=== PATIENT | male | born 1955 | race Caucasian/White ===

== ENCOUNTER → 2017-11-14 09:17 | Outpatient (CLI) | payer MEDICARE, OTHER, SELFPAY ==
[2017-11-14 12:04] LABS: Alanine Aminotransferase 29 U/L (12-78); Albumin Level 3.9 gm/dL (3.4-5.0); Alkaline Phosphatase 131 U/L (46-116); Aspartate Amino Transferase 18 U/L (15-37); Bilirubin,Direct 0.1 mg/dL (0.0-0.2); Bilirubin,Total 0.5 mg/dL (0.2-1.0); Chol/HDL Ratio 3.7 (1-3.5); Cholesterol 140 mg/dL (140-200); HDL Cholesterol 38 mg/dL (27-67); LDL Cholesterol 77 mg/dL (0-130); Triglycerides 125 mg/dL (30-200); VLDL Cholesterol 25 mg/dL (0-40)
== END ==
PROVIDERS: PCP Family Medicine; Visit Provider Internal Medicine Cardiovascular Disease
DX: I25.118 Atherosclerotic heart disease of native coronary artery with other forms of angina pectoris (principal); E78.4 Other hyperlipidemia; I10 Essential (primary) hypertension
CPT/HCPCS: 36415; 80061; 80076

== ENCOUNTER → 2018-08-20 07:14 | Outpatient (CLI) | payer MEDICARE, OTHER, SELFPAY ==
--- NOTE | 2018-08-20 07:15 | NM_ITS ---
History and Indications: History of MS, hypertension, family history, fatigue Procedure: Patient received a 0.4 mg of intravenous Lexiscan, resting heart rate was 60 bpm resting blood pressure 168/96, with intravenous Lexiscan maximum heart rate achieved was 121bpm which is less than 85% of the maximum predicted heart rate and a blood pressure was 155/76. With Lexiscan patient complained of shortness of breath and dizziness. Electrocardiogram: Resting echocardiogram showed sinus rhythm left bundle-branch block, with Lexiscan there is less than 1.[address] segment depression noted from the baseline EKG. The EKG portion of the Lexiscan Myoview is nondiagnostic. Cardiac stress and resting SPECT images: Cardiac stress and resting SPECT images were obtained using technetium 99 Myoview 31.1 mCi stress and 10.7 mCi at rest. Gated SPECT further analysis of segmental wall motion and calculation of the ejection fraction also done. Cardiac stress and resting SPECT images show a fixed defect involving the inferior, posterobasal and anteroseptal wall with area of prior myocardial scarring, no reversible ischemia seen, computer derived ejection fraction is 54% with marked inferior, posterobasal and anteroseptal wall hypokinesis. Right ventricle is normal size and contractility. Conclusion: 1. The EKG portion of the Lexiscan Myoview is nondiagnostic. 2. Scintigraphic evidence of myocardial scarring involving the inferior, posterobasal and anteroseptal wall, computer derived ejection fraction is 54% with segmental wall motion abnormality described above. Right ventricle is normal size and contractility. 3. Abnormal Lexiscan Myoview study.
--- NOTE | 2018-08-20 10:46 | HMH.ITSHM ---
Current Home Medications as stated by this patient Darian Mondragon or commercial sales representative. []famotidine metoprolol spironolactone asa atorvastatin
== END ==
PROVIDERS: PCP Family Medicine; Visit Provider Internal Medicine
DX: I25.5 Ischemic cardiomyopathy (principal); I25.118 Atherosclerotic heart disease of native coronary artery with other forms of angina pectoris; Z95.810 Presence of automatic (implantable) cardiac defibrillator
CPT/HCPCS: 78452; 93017; A9502; J2785

== ENCOUNTER → 2019-04-26 12:44 | Outpatient (CLI) | payer MEDICARE, OTHER, SELFPAY ==
--- NOTE | 2019-04-26 12:47 | CI_ITS ---
Cerebrovascular Exam IMPRESSIONS 1. The bilateral vertebral arteries are patent with normal antegrade flow. 2. Study suggests less than 20% stenosis involving the right internal carotid artery and the left internal carotid artery. History: Coronary artery disease. Risk factors: Hypertension. Hyperlipidemia. Carotid duplex study. Complete study and Doppler flow study including spectral analysis, color and arthur scale imaging. Location: Vascular laboratory. Patient status: Outpatient. Tables: Arterial flow: + +--------+--------+ Location V sys V ed + +--------+--------+ Right CCA - proximal 119cm/s 26.7cm/s + +--------+--------+ Right CCA - distal 69.8cm/s 16.3cm/s + +--------+--------+ Right ECA 136cm/s -------- + +--------+--------+ Right ICA - proximal 70.7cm/s 20.4cm/s + +--------+--------+ Right ICA - mid 78.7cm/s 22.3cm/s + +--------+--------+ Right ICA - distal 80.1cm/s 33cm/s + +--------+--------+ Right vertebral 49.5cm/s -------- + +--------+--------+ Left CCA - proximal 98.2cm/s 25.9cm/s + +--------+--------+ Left CCA - distal 62.3cm/s 16.5cm/s + +--------+--------+ Left ECA 95.9cm/s -------- + +--------+--------+ Left ICA - proximal 75.5cm/s 27.6cm/s + +--------+--------+ Left ICA - mid 80.4cm/s 29.3cm/s + +--------+--------+ Left ICA - distal 68.4cm/s 26.1cm/s + +--------+--------+ Left vertebral 62.2cm/s -------- + +--------+--------+ Velocity ratios: + + + + + + Right, V sys Right, V ed Left, V sys Left, V ed + + + + + + Max ICA/dist CCA 1.15 2.02 1.29 1.78 + + + + + + (Report amended ) Electronically signed by: Blu Walsh [id number]
--- NOTE | 2019-04-26 12:47 | CA_ITS ---
PROCEDURE: 2-D M-mode and color Doppler study INDICATIONS FOR THE TEST: Chest pain COPD Heart Murmur Tobacco Smoking Palpitations Fatigue Syncope Edema Hypertension+Diabetes Mellitus Rheumatic Fever SOB+DOUGLAS Obesity+Hyperlipidemia+ Family History HD Additional History CM, hx of cardiac arrest, CAD, cardiac stents, hx of LBBB, hx of STEMI PATIENT INFORMATION HEIGHT: 74 WEIGHT: 273 GENDER: Male B/P: 142/76 2-D/M-MODE INTERPRETATION: 2-D MEASUREMENTS OBSERVED VALUES IN CMS Right Ventricular Dimension (RVDd) 2.7 Interventricular Septum (Thickness)(IVsd) 0.9 Left Ventricular Internal Dimensions(LVIDd) 5.5 Left Ventricular Posterior Wall (Thickness)(LVPWd) 0.9 Aortic Root 3.1 Aortic Cusp Separation 2.0 Left Atrial Dimensions (LAD) 4.0 2D 1. Left atrium is mildly enlarged, left ventricle is normal size, mild concentric left ventricular hypertrophy, visually estimated ejection fraction 45%, there is abnormal septal motion. 2. The right atrium and right ventricle are normal size and contractility, there is an AICD or a pacemaker lead seen right ventricle. 3. The aortic valve is minimally thickened and fibrosed. 4. The mitral and tricuspid valvular grossly normal. 5. The pulmonic valve is poorly visualized. 6. No significant pericardial effusion noted. DOPPLER INTERROGATION: Doppler interrogation of the aortic, mitral and tricuspid valvular presence of mild aortic, mild mitral and tricuspid regurgitation, tricuspid regurgitation jet velocity is inadequate for calculation of the right ventricular systolic pressure, grade 1 diastolic dysfunction seen without tissue Doppler evidence of raised left atrial pressure. CONCLUSION: 1. Mildly enlarged left atrium, normal left ventricular size, mild concentric left ventricular hypertrophy, visually estimated ejection fraction 45%, there is abnormal septal motion. Grade 1 diastolic dysfunction seen without tissue Doppler evidence of raised left atrial pressure. 2. Mild aortic, mild mitral and tricuspid regurgitation 3. No significant pericardial effusion noted.
== END ==
PROVIDERS: PCP Family Medicine; Visit Provider Nurse Practitioner Family
DX: I25.5 Ischemic cardiomyopathy (principal); I51.9 Heart disease, unspecified; R42 Dizziness and giddiness; Z86.74 Personal history of sudden cardiac arrest; Z95.810 Presence of automatic (implantable) cardiac defibrillator; R09.89 Other specified symptoms and signs involving the circulatory and respiratory systems
CPT/HCPCS: 93306; 93880

== ENCOUNTER → 2019-07-23 12:08 | Outpatient (CLI) | payer MEDICARE, OTHER, SELFPAY ==
[2019-07-23 12:37] LABS: Basophils % 0.5 % (0.1-2.0); Eosinophils # 0.2 K/mm3 (0.0-0.4); Eosinophils % 3.9 % (0.1-12.0); Hematocrit 42.4 % (42.0-52.0); Hemoglobin 13.5 g/dL (14.1-18.0); Lymphocytes # 1.4 K/mm3 (0.7-4.5); Lymphocytes % 25.3 % (10-50); Mean Corpuscular HGB Conc 31.8 g/dL (31.8-35.4); Mean Corpuscular Hemoglobin 29.7 pg (27.0-31.2); Mean Corpuscular Volume 93.5 fl (80-94); Mean Platelet Volume 7.6 fl (7.4-10.4); Monocytes # 0.3 K/mm3 (0.1-1.0); Monocytes % 5.4 % (1.7-9.3); Neutrophils # 3.6 K/mm3 (1.8-7.8); Neutrophils % 64.9 % (37.0-80.0); Platelet Count 369 K/mm3 (142-424); Red Blood Count 4.54 M/mm3 (4.60-6.20); Red Cell Distribution Width 13.3 % (11.5-17.5); White Blood Count 5.5 K/mm3 (4.8-10.8)
[2019-07-23 14:07] LABS: Anion Gap 16.1 mEq/L (5-15); Blood Urea Nitrogen 17 mg/dL (7-18); Calcium 9.3 mg/dL (8.5-10.1); Carbon Dioxide 26 mmol/L (21.0-32.0); Chloride 104 mmol/L (98-107); Creatinine,Serum 1.09 mg/dL (0.70-1.30); Estimated Glomerular Filt Rate 68 ml/min (>60); Free Thyroxine Index 2.8 ug/dL (5.93-13.13); GFR (African American) 82 ML/MIN (>60); Glucose 105 mg/dL (74-106); Potassium 5.1 mmoL/L (3.5-5.1); Sodium 141 mmol/L (136-145); T4 (Thyroxine) 8.8 ug/dl (4.7-13.3); Thyroid Stimulating Hormone 1.46 uIU/ml (0.358-3.740); Triiodothryronine (T3) Uptake 32 % (31-39)
== END ==
PROVIDERS: Visit Provider Internal Medicine Cardiovascular Disease
DX: E78.2 Mixed hyperlipidemia (principal); I10 Essential (primary) hypertension; I25.10 Atherosclerotic heart disease of native coronary artery without angina pectoris; I25.5 Ischemic cardiomyopathy; I48.91 Unspecified atrial fibrillation; I51.9 Heart disease, unspecified; R42 Dizziness and giddiness; Z86.74 Personal history of sudden cardiac arrest; Z95.810 Presence of automatic (implantable) cardiac defibrillator
CPT/HCPCS: 36415; 80048; 84436; 84443; 84479; 85025

== ENCOUNTER 2020-02-14 11:18 | Emergency (ER) | payer MEDICARE, OTHER, SELFPAY ==
[2020-02-14 11:21] VITALS: BP 163/94; PULSE 86; RESP 18; TEMP 36.9; O2SAT 95; BMI 24.3
--- NOTE | 2020-02-14 11:29 | CT_ITS ---
PROCEDURE: CT LUMBAR SPINE WO CON CLINICAL HISTORY: back pain, nocturnal Low back pain COMPARISON: [facility] CT LUMBAR SPINE W/O CONTRAST from 11/23/2012 TECHNIQUE: Axial images obtained with sagittal and coronal reformats. All CT scans at the facility use one or more dose reduction, viz: automated exposure control, ma/kV adjustment per patient size (including targeted exams where dose is matched to indication, i.e. head), or iterative reconstruction technique. FINDINGS: There is straightening of the lumbar lordosis which may be due to patient positioning or muscle spasm. T11-T12: Degenerate disc disease with facet ligamentum hypertrophy and mild right foraminal and lateral recess narrowing. T12-L1: Degenerate disc disease. Anterior osteophytes are present at this level. L1-L2: Mild degenerative disc disease. There is bulging disc with disc protrusion in both right and left foraminal region right greater than left. L2-L3: Unremarkable. L3-L4: Degenerate disc disease with bulging disc along with facet and ligamentum hypertrophy with moderate to severe bilateral lateral recess narrowing with bilateral foraminal narrowing and canal stenosis at 10 mm. L4-5: Mild degenerative disc disease with bulging disc with facet ligamentum hypertrophy with moderate bilateral foraminal and lateral recess narrowing. L5-S1: Degenerate disc disease with prominent endplate hypertrophic changes well as facet and ligamentum hypertrophy with severe right-sided foraminal narrowing and moderate to severe left-sided foraminal narrowing along with right lateral recess narrowing. Right paracentral and foraminal disc osteophyte complex is present. IMPRESSION: 1. Multilevel lumbar spondylosis as detailed above. Please see above for detailed description at each level. These findings are most severe at L3-L4 and L5-S1. 2. No acute fracture or dislocation. Dictated by: David Rocha MD 02/14/2020 12:31 Electronically signed by David Rocha MD in [place] 02/14/2020 12:31
--- NOTE | 2020-02-14 11:29 | HMH.EDGENADL ---
ED Disposition Clinical Impression: Lumbar disc disease Low back pain Qualifiers: Chronicity: chronic Back pain laterality: midline Sciatica presence: without sciatica Qualified Code(s): M54.5 - Low back pain Disposition: Home, Self-Care Condition on Discharge: Fair Instructions: DI for Low Back Pain Additional Instructions: You have been evaluated for low back pain, likely due to degenerative joint disease. Please take Tylenol and ibuprofen for pain. Use Lidoderm patches if they help. Follow up with your primary care doctor this week. Return to the emergency department if you have new or worsening symptoms, fevers, numbness, difficulty walking. Referrals: Provider,Referral, [Referring] - Time of Disposition: 14:18 - Critical Care Critical Care Time: No Attestation: On , the high probability of a clinically significant, sudden or life threatening deterioration of the following system(s) required my full and direct attention, intervention and personal management. The time I documented below is in addition to time spent performing reported procedures but includes the following listed in this critical care notation. Medical Decision Making - Anthony Inquiry Pt receiving controlled substance: No Vital Signs: 02/14/20 11:21 02/14/20 13:41 Temperature 98.4 F 98.0 F Temperature Source Oral Oral Pulse Rate 79 Pulse Rate [Right Radial] 86 Respiratory Rate 18 17 Blood Pressure 145/74 H Blood Pressure [Right Arm] 163/94 H Blood Pressure Mean [Right Arm] 117 Blood Pressure Source [Right Arm] Automatic Cuff Blood Pressure Position [Right Arm] Sitting 02 Sat by Pulse Oximetry 95 Oxygen Delivery Method Room Air Room Air - Lab Data Lab Results 02/14/20 12:05: WBC 6.9, RBC 4.82, Hgb 14.4, Hct 43.0, MCV 89.2, MCH 29.9, MCHC 33.5, RDW 13.5, Plt Count 313, MPV 7.9, Neut % (Auto) 78.5, Lymph % (Auto) 14.6, [place] % (Auto) 4.3, Eos % (Auto) 2.1, Baso % (Auto) 0.4, Neut # (Auto) 5.4, Lymph # (Auto) 1.0, [place] # (Auto) 0.3, Eos # (Auto) 0.2, Baso # (Auto) 0.0 02/14/20 12:10: Urine Color Yellow, Urine Appearance Clear, Urine pH 5.5, Ur Specific [place] >= 1.030, Urine Protein Negative, Urine Glucose (UA) Negative, Urine Ketones Negative, Urine Blood 1+, Urine Nitrate Negative, Urine Bilirubin Negative, Urine Urobilinogen 0.2, Ur Leukocyte Esterase Negative, Urine RBC Occasional, Urine WBC None, Ur Squamous Epith Cells Occasional, Urine Bacteria Trace 02/14/20 12:38: Sodium 139, Potassium 4.5, Chloride 105, Carbon Dioxide 22, Anion Gap 16.5 H, BUN 19, Creatinine 1.00, Estimated Creat Clear 89, Estimated GFR 75, Est GFR ( Amer) 90, Glucose 123 H, Calcium 9.5, Total Bilirubin 0.6, AST 43, ALT 46, Alkaline Phosphatase 86, Total Protein 8.1, Albumin 4.9, Globulin 3.2, Albumin/Globulin Ratio 1.5 Result diagrams: 02/14/20 12:05 02/14/20 12:38 Orders (Tests/Meds): ED MEDICATIONS Discontinued Medications Generic Name Dose Route Start Last Admin Trade Name Jelani PRN Reason Stop Dose Admin Ketorolac Tromethamine 15 mg 02/14/20 11:30 02/14/20 12:52 Toradol 30mg/Ml Vial IV 02/14/20 11:31 15 mg ONCE ONE Administration Lidocaine 1 each 02/14/20 12:49 02/14/20 13:00 Lidoderm 5% Transdermal Patch TP 02/14/20 12:50 1 each ONCE ONE Administration - CT Data CT Scan: L-Spine Time Received: 12:[address] Reviewed: Yes: I have reviewed the patient's CT results, I have viewed the radiologist's interpretation Findings Narrative: CT 1. Multilevel lumbar spondylosis as detailed above. Please see above for detailed description at each level. These findings are most severe at L3-L4 and L5-S1. 2. No acute fracture or dislocation. Medical Decision Narrative: In summary this is a 64-year-old male presenting to the emergency department with midline lumbar back pain. Patient appears uncomfortable on arrival to the emergency department. Vital signs are stable with the exception of hypertension.
[2020-02-14 12:13] LABS: Appearance,Urine CLEAR (Clear); Bilirubin,Urine Negative (Negative); Blood, Urine 1+ (Negative); Color,Urine YELLOW (Yellow); Glucose,Urine (UA) Negative (Negative); Ketones,Urine Negative (Negative); Leukocyte Esterase,Urine Negative (Negative); Microscopic, Urine URINE MICROSCOPIC (MICROSCOPIC); Nitrate,Urine Negative (Negative); PH,Urine 5.5 (5.0-8.5); Protein,Urine Negative (Negative); Specific Gravity, Urine >= 1.030 (1.005-1.030); Urobilinogen,Urine 0.2 EU/dl (0.2)
[2020-02-14 12:18] LABS: Basophils % 0.4 % (0.1-2.0); Eosinophils # 0.2 K/mm3 (0.0-0.4); Eosinophils % 2.1 % (0.1-12.0); Hemoglobin 14.4 g/dL (14.1-18.0); Lymphocytes % 14.6 % (10-50); Mean Corpuscular HGB Conc 33.5 g/dL (31.8-35.4); Mean Corpuscular Hemoglobin 29.9 pg (27.0-31.2); Mean Corpuscular Volume 89.2 fl (80-94); Mean Platelet Volume 7.9 fl (7.4-10.4); Monocytes # 0.3 K/mm3 (0.1-1.0); Monocytes % 4.3 % (1.7-9.3); Neutrophils # 5.4 K/mm3 (1.8-7.8); Neutrophils % 78.5 % (37.0-80.0); Platelet Count 313 K/mm3 (142-424); Red Blood Count 4.82 M/mm3 (4.60-6.20); Red Cell Distribution Width 13.5 % (11.5-17.5); White Blood Count 6.9 K/mm3 (4.8-10.8)
[2020-02-14 12:29] LABS: Bacteria,Urine Trace /lpf; RBC,Urine Occasional #/hpf (0-3); Squamous Epithelial Cell,Urine Occasional #/hpf (0-5)
[2020-02-14 12:51] LABS: Chloride 105 mmol/L (98-107); Potassium 4.5 mmoL/L (3.5-5.1); Sodium 139 mmol/L (136-145)
[2020-02-14 12:53] LABS: Alanine Aminotransferase 46 U/L (12-78); Alkaline Phosphatase 86 U/L (38-126); Aspartate Amino Transferase 43 U/L (17-59); Bilirubin,Total 0.6 mg/dl (0.2-1.3); Blood Urea Nitrogen 19 mg/dl (9-20); Creatinine Clearance Estimated 89 mL/min (50-200); Estimated Glomerular Filt Rate 75 ml/min (>60); GFR (African American) 90 ML/MIN (>60)
[2020-02-14 12:54] LABS: Albumin Level 4.9 g/dl (3.5-5.0); Albumin/Globulin Ratio 1.5 (1.1-1.8); Anion Gap 16.5 mEq/L (5-15); Calcium 9.5 mg/dl (8.4-10.2); Carbon Dioxide 22 mmol/L (22.0-30.0); Globulin 3.2 g/dL (1.3-3.2); Glucose 123 mg/dl (74-100); Total Protein,Serum 8.1 g/dl (6.3-8.2)
[2020-02-14 13:41] VITALS: BP 145/74; PULSE 79; RESP 17; TEMP 36.7; O2SAT 99
== END 2020-02-14 13:41 | disposition home or self-care (01) ==
PROVIDERS: Emergency Provider Emergency Medicine; PCP Family Medicine
DX: M51.36 Other intervertebral disc degeneration, lumbar region (principal); Z87.39 Personal history of other diseases of the musculoskeletal system and connective tissue; Z79.82 Long term (current) use of aspirin; Z79.899 Other long term (current) drug therapy; Z88.8 Allergy status to other drugs, medicaments and biological substances; I25.10 Atherosclerotic heart disease of native coronary artery without angina pectoris; E78.5 Hyperlipidemia, unspecified; I10 Essential (primary) hypertension; Z95.0 Presence of cardiac pacemaker; I25.2 Old myocardial infarction
CPT/HCPCS: 72131; 80053; 81001; 85025; 96374; 99283

== ENCOUNTER → 2020-04-17 12:16 | Outpatient (CLI) | payer MEDICARE, OTHER, SELFPAY ==
[2020-04-17 14:20] LABS: Alanine Aminotransferase 42 U/L (12-78); Albumin Level 4.8 g/dl (3.5-5.0); Alkaline Phosphatase 100 U/L (38-126); Anion Gap 17.4 mEq/L (5-15); Aspartate Amino Transferase 44 U/L (17-59); Bilirubin,Direct 0.1 mg/dl (0.0-0.4); Bilirubin,Indirect 0.3 mg/dL (0.0-0.9); Bilirubin,Total 0.4 mg/dl (0.2-1.3); Bilirubin,Unconjugated 0.3 mg/dL (0.0-1.1); Blood Urea Nitrogen 20 mg/dl (9-20); Calcium 9.9 mg/dl (8.4-10.2); Carbon Dioxide 23 mmol/L (22.0-30.0); Chloride 102 mmol/L (98-107); Chol/HDL Ratio 4.8 (1-3.5); Cholesterol 216 mg/dl (140-200); Estimated Glomerular Filt Rate 75 ml/min (>60); GFR (African American) 90 ML/MIN (>60); Glucose 119 mg/dl (74-100); HDL Cholesterol 45 mg/dl (40-60); Potassium 4.4 mmoL/L (3.5-5.1); Sodium 138 mmol/L (136-145); Total Protein,Serum 7.6 g/dl (6.3-8.2); Triglycerides 183 mg/dl (30-150); VLDL Cholesterol 37 mg/dL (0-40)
[2020-04-17 14:31] LABS: Direct LDL Cholesterol 138.82 mg/dL (100-129)
== END ==
PROVIDERS: Visit Provider Physician Assistant
DX: I10 Essential (primary) hypertension (principal); I42.9 Cardiomyopathy, unspecified; I48.91 Unspecified atrial fibrillation; E78.5 Hyperlipidemia, unspecified; I25.10 Atherosclerotic heart disease of native coronary artery without angina pectoris; Z79.899 Other long term (current) drug therapy; R07.89 Other chest pain
CPT/HCPCS: 36415; 80048; 80061; 80076

== ENCOUNTER → 2021-04-30 10:06 | Outpatient (CLI) | payer MEDICARE, OTHER, SELFPAY ==
--- NOTE | 2021-04-30 10:08 | CA_ITS ---
APPROVED REPORT Flight Security Specialist: Moni Batista RVT Laterality: Bilateral Study Quality: Good Indications: JACQUE Risk Factors Hypertension: Hyperlipidemia Doppler Spectral Velocity Analysis ECA (R) 129.40/19.70 cm/s ECA (L) 112.20/16.50 cm/s dICA (R) 79.70/24.00 cm/s dICA (L) 91.30/33.70 cm/s Archana (R) 65.10/25.70 cm/s Archana (L) 80.80/32.90 cm/s pICA (R) 99.40/20.60 cm/s pICA (L) 86.80/29.90 cm/s dCCA (R) 92.80/22.40 cm/s dCCA (L) 82.30/18.00 cm/s pCCA (R) 93.50/16.50 cm/s pCCA (L) 140.60/27.00 cm/s Vert (R) 45.60/9.60 cm/s Vert (L) 52.70/15.40 cm/s ICA/CCA 1.07 ICA/CCA 1.11 Findings Study suggests less than 20% stenosis of the right and left internal cartoid arteries. Antegrade flow seen bilateral vertebral arteries. Conclusion Study suggests less than 20% stenosis of the right and left internal cartoid arteries. Antegrade flow seen bilateral vertebral arteries. Electronically signed by : David Rocha MD 04/30/2021 17:10:14
--- NOTE | 2021-04-30 10:08 | CA_ITS ---
APPROVED REPORT EXAM: Comprehensive 2D, Doppler, and color-flow Echocardiogram Health Care Legal Assistant: oMni Batista RVT Ht: 6 ft 2 in Wt: 298lbs BSA: 2.58 BP: 142/74 mmHg Indications: EDEMA,CM,HX CARDIAC ARREST,CAD,STENTS,AICD,LBBB,A-FIB,OBESITY,HTN,HLD 2D Dimensions LVOT 2.76 cm (M/F) 1.5-2.5 LA Volume 28.60 mL LA Volume Index 11.12 mL/m2 (M/F) 16-34 M-Mode Dimensions RVDd 3.10 cm (0.9-2.6) LA Diam 4.00 cm (1.9-4.0) LVDd 5.15 cm (3.5-5.7) Ao Diam 3.21 cm (2.0-3.7) LVDs 3.90 cm (3.5-5.7) IVSd 0.89 cm (0.6-1.1) PWd 0.72 cm (0.6-1.1) EF (Teich) 47.90% FS 24.30% EDV (Teich) 126.60 mL TAPSE 2.17 (<1.7) ESV (Teich) 65.90 mL LV Diastology E Decel Time 210.00 (160-240 msec) E/A Ratio 0.8 MED E' 5.80 (< 7 cm/sec) E'/MED E' Ratio 8.41 (>14) LAT E' 8.30 (<10 cm/sec) E/LAT E' Ratio 5.88 (>14) Aortic Valve AI PHT 987.00 ms AO Peak GR. 4.20 mmHg Mitral Valve MV E Max Brady. 49.00 (40-130 cm/s) MV A Velocity 60.00 (40-130 cm/s) E/A Ratio 0.81 MV Decel. Time 210.00 (160-240 ms) MV PHT 62.00 ms Pulmonary Valve PV Peak Velocity 99.00 (50-150 cm/s) Tricuspid Valve TR P. Velocity 223.00 cm/s RAP Estimate 10.00 mmHg RVSP 29.90 mmHg Left Ventricle Left atrium is mildly enlarged, left ventricle is normal size, mild concentric left ventricular hypertrophy, visually estimated ejection fraction 55% with no regional wall motion abnormality, grade 1 diastolic dysfunction seen without tissue Doppler evidence of raise left atrial pressure. Right Ventricle Right atrium and right ventricle are normal size and contractility, there is an AICD lead seen in right atrium and right ventricle. Aortic Valve Aortic valve is minimally thickened and fibrosed, there is aortic stenosis, there is trace aortic insufficiency. Mitral Valve Mitral valve is grossly normal, there is trace mitral regurgitation. Tricuspid Valve Tricuspid grossly normal, there is mild tricuspid regurgitation, calculated right ventricular systolic pressure is within normal range. Pulmonic Valve Pulmonic valve is poorly visualized. Great Vessels Aortic root is normal size. Pericardium No significant pericardial effusion noted. Conclusion 1. Mildly enlarged left atrium, normal left ventricular size, mild concentric left ventricular hypertrophy, visually estimated ejection fraction 55% with no regional wall motion abnormality, grade 1 diastolic dysfunction seen without tissue Doppler evidence of raise left atrial pressure. 2. Thickened and calcified aortic valve without aortic stenosis, there is trace aortic insufficiency. 3. Trace mitral and mild tricuspid regurgitation, calculated right ventricular systolic pressure 29 mmHg. 4. No significant pericardial effusion noted. Electronically signed by : Arsenio Orourke, 04/30/2021 12:51:05
[2021-04-30 12:48] LABS: Chloride 105 mmol/L (98-107)
[2021-04-30 12:49] LABS: Potassium 4.7 mmoL/L (3.5-5.1); Sodium 138 mmol/L (136-145)
[2021-04-30 12:51] LABS: Alanine Aminotransferase 35 U/L (12-78); Alkaline Phosphatase 102 U/L (38-126); Anion Gap 13.7 mEq/L (5-15); Aspartate Amino Transferase 31 U/L (17-59); Bilirubin,Direct 0.4 mg/dl (0.0-0.4); Bilirubin,Indirect 0.4 mg/dL (0.0-0.9); Bilirubin,Total 0.8 mg/dl (0.2-1.3); Bilirubin,Unconjugated 0.4 mg/dL (0.0-1.1); Blood Urea Nitrogen 16 mg/dl (9-20); Carbon Dioxide 24 mmol/L (22.0-30.0); Cholesterol 124 mg/dl (140-200); Estimated Glomerular Filt Rate 75 ml/min (>60); GFR (African American) 90 ML/MIN (>60); Triglycerides 155 mg/dl (30-150); VLDL Cholesterol 31 mg/dL (0-40)
[2021-04-30 12:52] LABS: Albumin Level 4.4 g/dl (3.5-5.0); Calcium 9.2 mg/dl (8.4-10.2); Chol/HDL Ratio 3.8 (1-3.5); Glucose 109 mg/dl (74-100); HDL Cholesterol 33 mg/dl (40-60); Total Protein,Serum 7.1 g/dl (6.3-8.2)
== END ==
PROVIDERS: PCP Family Medicine; Visit Provider Urology
DX: R09.89 Other specified symptoms and signs involving the circulatory and respiratory systems; I25.10 Atherosclerotic heart disease of native coronary artery without angina pectoris; I42.9 Cardiomyopathy, unspecified; I48.91 Unspecified atrial fibrillation; I51.9 Heart disease, unspecified; E78.5 Hyperlipidemia, unspecified; Z86.74 Personal history of sudden cardiac arrest; Z95.810 Presence of automatic (implantable) cardiac defibrillator
CPT/HCPCS: 36415; 80048; 80061; 80076; 93306; 93880

== ENCOUNTER → 2021-08-23 07:59 | Outpatient (CLI) | payer MEDICARE, OTHER, SELFPAY ==
[2021-08-23] VITALS (9 sets, daily range): BP systolic 120–146; BP diastolic 64–94; PULSE 62–94; RESP 17–18; TEMP 36.8–37.1; O2SAT 92–96
== END ==
PROVIDERS: PCP Family Medicine; Visit Provider Family Medicine
DX: U07.1 COVID-19 (principal); Z23 Encounter for immunization
CPT/HCPCS: 96365

== ENCOUNTER → 2021-09-28 16:13 | Outpatient (CLI) | payer MEDICARE, OTHER, SELFPAY ==
--- NOTE | 2021-09-28 | XR_ITS ---
PROCEDURE INFORMATION: Exam: XR Left Knee Exam date and time: 09/28/2021 12:00 AM Age: 66 years old Clinical indication: Pain; Knee; Left TECHNIQUE: Imaging protocol: XR Left knee. Views: 3 views. COMPARISON: No relevant prior studies available. FINDINGS: Bones/joints: No acute fracture. No dislocation. [id number] patellofemoral and medial compartment osteophytosis and joint space loss. Mild lateral patellofemoral compartment degenerative change. Mineralized bodies measuring up to 1.2 cm in size near the anterior tibial tuberosity, probably intra-articular. Nonspecific moderate to large joint effusion. Enthesophyte formation with mild chronic appearing fragmentation of the quadriceps tendon insertion. Small chronic/corticated ossific projecting near the flabella. Soft tissues: Normal. IMPRESSION: 1. Nonspecific moderate to large joint effusion. 2. Tricompartmental osteoarthrosis. Probable mineralized intra-articular bodies anteriorly.
== END ==
PROVIDERS: PCP Family Medicine; Visit Provider Family Medicine
DX: M25.562 Pain in left knee (principal)
CPT/HCPCS: 73562

== ENCOUNTER → 2021-10-25 09:36 | Outpatient (CLI) | payer MEDICARE, OTHER, SELFPAY ==
--- NOTE | 2021-10-25 09:47 | XR_ITS ---
PROCEDURE: XR KNEE LT 4V CLINICAL INDICATION: left knee pain, weightbearing COMPARISON: CR XR KNEE LT 3V from 09/28/2021 FINDINGS: No fracture or dislocation. No lytic or blastic change. There is normal mineralization. There are mild tricompartmental osteoarthritic changes. Osteophytes are present at the intercondylar region of the distal femur and the inter spinous region of the proximal tibia as well at the patella. Along the anterior aspect of the proximal tibia there is a loose body measuring 12 mm. Enthesophyte is present at the superior patella anteriorly. Suspect small suprapatellar effusion. Other findings:None. IMPRESSION: Osteoarthritic changes as described above overall not significantly changed with possible small suprapatellar effusion. Dictated by: David Rocha MD 10/25/2021 12:20 David Rocha MD in [place] 10/25/2021 12:20
== END ==
PROVIDERS: PCP Family Medicine; Visit Provider Orthopaedic Surgery
DX: M25.562 Pain in left knee (principal)
CPT/HCPCS: 73564

== ENCOUNTER → 2022-04-30 06:17 | Outpatient (CLI) | payer MEDICARE, OTHER, SELFPAY ==
--- NOTE | 2022-04-30 06:18 | CA_ITS ---
APPROVED REPORT Exam: Pharmacologic Technologist: Yolanda Hernandez Ht: 6 ft 2 in Wt: 295 lbs BSA: 2.56 m2 HR: 60 bpm BP: 143/76 mmHg Indications: Shortness of Breath (R06.02) Medical History Medications: Lisinopril,,,,, Aspirin,,,,, Metoprolol,,,,, Atorvastatin,,,,, Famotidine,,,,, SpirOnolactone,,,,, RIvaROXABAN,,,,, Furosemide,,,,, Stress Test Details Test: LEXISCAN HR Resting HR: 60 bpm Max Heart Rate (APMHR): 152.505603 bpm Max HR Achieved: 97 bpm Target HR (85% APMHR): 129.865517 bpm % of APMHR: 63.82 Recovery HR: 81 bpm BP Resting BP: 143.0/76.0 mmHg Max BP: 143.0/76.0 mmHg Recovery BP: 133.0/72.0 mmHg ECG Resting ECG: Normal sinus rhythm, rate dependent left bundle branch block, cannot rule out old inferior and anterior LA. Clinical Exercise duration: 04:08 min Highest Stage Achieved: Exercise capacity: 1.0 METs Stress ECG Conclusion Symptoms: Shortness of air, head discomfort. No chest pain. Arrhythmias/Ectopy: Occasional PVC. Apparent rate dependent Left bundle branch block. ST-T Changes: Non-diagnostic changes accociated with Left bundle branch block. Conclusion: Non-diagnostic Lexiscan stress. Myoview images reported separately. Test Summary RECOVERY 03:00 . . 74 . 132/ 76 . . REST 07:56 . . 60 . 143/ 76 . . Stage 1 . . . . . . . Myoview Injected Stage 1 01:00 . . 70 . . . . Stage 2 01:00 . . 87 . . . . Stage 3 01:00 . . 85 . 128/ 68 . . Stage 4 01:00 . . 84 . 134/ 70 . . Stage 4 01:08 . . 79 . 134/ 70 . Stop exercise at 04:08 RECOVERY 01:00 . . 79 . 115/ 67 . . RECOVERY 02:00 . . 83 . 115/ 67 . . RECOVERY 03:00 . . 74 . 132/ 76 . . RECOVERY 04:00 . . 71 . 133/ 72 . . RECOVERY 04:26 . . 73 . 133/ 72 . . Electronically signed by : Arsenio Orourke MD 04/30/2022 18:22:16
--- NOTE | 2022-04-30 06:18 | CA_ITS ---
APPROVED REPORT EXAM: Comprehensive 2D, Doppler, and color-flow Echocardiogram [employer] Locomotive: Bri Mauro, RCS, RVS Ht: 6 ft 2 in Wt: 295lbs BSA: 2.56 BP: 129/65 mmHg Indications: SOA, CAD, AICD, Hx-afib, HTN, Resolved CM 2D Dimensions IVSd 1.30 cm LVEF (Visual) 64.30 % PWd 1.08 cm LA Volume 89.10 mL LVDd 5.24 cm LA Volume Index 34.80 mL/m2 (M/F) 16-34 LVDs 3.39 cm Aortic Root 3.36 cm Left Atrium 3.83 cm LVOT 2.05 cm (M/F) 1.5-2.5 M-Mode Dimensions LA Diam 4.22 cm (1.9-4.0) LVDd 5.28 cm (3.5-5.7) Ao Diam 3.92 cm (2.0-3.7) LVDs 3.59 cm (3.5-5.7) EF (Teich) 59.70% EPSs 0.47 cm FS 32.00% EDV (Teich) 134.20 mL TAPSE 2.12 (<1.7) ESV (Teich) 54.10 mL LV Diastology E Decel Time 300.00 (160-240 msec) E/A Ratio 1.27 MED E' 7.00 (< 7 cm/sec) MED A' 8.90 cm/s E'/MED E' Ratio 8.71 (>14) LAT E' 9.40 (<10 cm/sec) LAT A' 7.60 cm/s E/LAT E' Ratio 6.49 (>14) Aortic Valve LVOT Max 110.00 (70-110 cm/s) LVOT VTI 25.33 cm AoV Peak Brady. 136.00 (50-130 cm/s) AI PHT 651.00 ms AO Peak GR. 7.40 mmHg AO Mean GR. 3.70 (<5 mmHg) AO VTI 29.46 (18-25 cm) NESHA (VTI) 2.84 (2.5-4.5 cm2) Mitral Valve MV A Velocity 48.00 (40-130 cm/s) E/A Ratio 1.27 MV Decel. Time 300.00 (160-240 ms) MV Mean Gr. 1.00 (<2mmHg) MV PHT 87.00 ms Pulmonary Valve PV Peak Velocity 114.00 (50-150 cm/s) NE End VMAX 104.00 cm/s Tricuspid Valve TR P. Velocity 229.00 cm/s RAP Estimate 10.00 mmHg RVSP 31.00 mmHg Left Ventricle Left atrium is mildly enlarged, left ventricle is normal size mild concentric left ventricular hypertrophy, estimated ejection fraction 55% with no regional wall motion abnormality, diastolic parameters are inconclusive. Right Ventricle Right atrium and right ventricle are normal size and contractility, there is an AICD lead seen in right ventricle. Aortic Valve Aortic valve is thickened and calcified without aortic stenosis, there is mild aortic insufficiency. Mitral Valve Mitral valve is minimally thickened, there is mild mitral regurgitation. Tricuspid Valve Tricuspid grossly normal, there is mild tricuspid regurgitation, calculated right ventricular systolic pressure 31 mmHg. Pulmonic Valve Pulmonic valve is poorly visualized. Great Vessels Aortic root is mildly enlarged measuring 3.9 cm Inferior vena cava is poorly visualized. Pericardium No significant pericardial effusion noted. Conclusion 1. Normal left ventricular size preserved left ventricular systolic function, estimated ejection fraction 55% with no regional wall motion abnormality, diastolic parameters are inconclusive. 2. Mild aortic, mitral and tricuspid regurgitation. 3. No significant pericardial effusion. 4. Inferior vena cava is poorly visualized. Electronically signed by : Arsenio Orourke MD 04/30/2022 18:34:19
--- NOTE | 2022-04-30 06:18 | NM_ITS ---
APPROVED REPORT Exam: Nuclear Stress Test Indication: SOB, Fatigue, CAD, HTN, High cholesterol, Family history Patient Location: Outpatient Stress Tech: Yolanda Hernandez NM Tech:Bernadine Argueta, ARRT, RT (R)(N) Ht: 6 ft 2 in Wt: 294 lbs HR: 60 bpm BP: 143/76 mmHg BSA: 2.56 m2 TID: 1.03 BMI: 37.7 History: SOB, Fatigue, CAD, HTN, High cholesterol, Family history Procedure: Patient received a 0.4 mg of intravenous Lexiscan, resting heart rate 60 bpm, resting blood pressure 143/76 mmHg, with Lexiscan maximum heart rate achived was 97 bpm which is Less than 85 % of the maximum predicted heart rate and blood pressure was 143/76 mmHg. With Lexiscan, patient denied any complaint of chest pain. Electrocardiogram Resting electrocardiogram showed sinus rhythm possible inferior infarct age-indeterminate, with Lexiscan there is rate dependent left bundle branch block was seen. The EKG portion of the Lexiscan is nondiagnostic due to baseline abnormal EKG. Cardiac Stress and Resting SPECT Images: Cardiac Stress and Resting SPECT images were obtained using technetium 99m Myoview 30.4 mCi stress and 10.61 mCi at rest. Patient unable to lay on stomach for prone images. Gated SPECT for analysis of segmental wall motion and calculation of the ejection for also done. Cardiac stress and rest SPECT images show fixed defect involving the inferior and inferior apical wall consistent with area of myocardial scarring without significant paz-infarct ischemia, computer derived ejection fraction 56% with moderate inferior and inferior apical wall hypokinesis, right ventricle is normal size and contractility. Conclusion: 1. The EKG portion of the Lexiscan is nondiagnostic. 2. Scintigraphic evidence of myocardial scarring involving the inferior and inferior apical daugherty, computer derived ejection fraction 56% with segmental wall motion abnormality described above, right ventricle is normal size and contractility. 3. Abnormal Lexiscan Myoview study. Electronically signed by : Arsenio Orourke MD 04/30/2022 18:25:02
--- NOTE | 2022-04-30 08:05 | HMH.ITSHM ---
Current Home Medications as stated by this patient Darian Mondragon or auto service representative. []SPIRONOLACTONE RIVAROXABAN METOPROLOL LISINOPRIL FUROSEMIDE ATORVASTATIN ASA FAMOTIDINE
[2022-04-30 10:15] LABS: Basophils # 0.1 K/mm3 (0-0.2); Basophils % 0.6 % (0.1-2.0); Eosinophils # 0.1 K/mm3 (0.0-0.4); Eosinophils % 1.8 % (0.1-12.0); Hematocrit 44.1 % (42.0-52.0); Hemoglobin 13.4 g/dL (14.1-18.0); Lymphocytes # 1.2 K/mm3 (0.7-4.5); Lymphocytes % 15.2 % (10-50); Mean Corpuscular HGB Conc 30.4 g/dL (31.8-35.4); Mean Corpuscular Hemoglobin 30.1 pg (27.0-31.2); Mean Corpuscular Volume 99.1 fl (80-94); Monocytes # 0.4 K/mm3 (0.1-1.0); Monocytes % 5.8 % (1.7-9.3); Neutrophils # 5.8 K/mm3 (1.8-7.8); Neutrophils % 76.6 % (37.0-80.0); Platelet Count 300 K/mm3 (142-424); Red Blood Count 4.45 M/mm3 (4.60-6.20); Red Cell Distribution Width 13.9 % (11.5-17.5); White Blood Count 7.6 K/mm3 (4.8-10.8)
[2022-04-30 10:39] LABS: Alanine Aminotransferase 42 U/L (12-78); Albumin Level 4.2 g/dl (3.5-5.0); Alkaline Phosphatase 96 U/L (38-126); Anion Gap 16.5 mEq/L (5-15); Aspartate Amino Transferase 41 U/L (17-59); Bilirubin,Indirect 0.5 mg/dL (0.0-0.9); Bilirubin,Total 0.5 mg/dl (0.2-1.3); Bilirubin,Unconjugated 0.7 mg/dL (0.0-1.1); Blood Urea Nitrogen 16 mg/dl (9-20); Calcium 9.4 mg/dl (8.4-10.2); Carbon Dioxide 26 mmol/L (22.0-30.0); Chloride 103 mmol/L (98-107); Chol/HDL Ratio 3.3 (1-3.5); Cholesterol 115 mg/dl (140-200); Estimated Glomerular Filt Rate 84 ml/min (>60); GFR (African American) 102 ML/MIN (>60); Glucose 132 mg/dl (74-100); HDL Cholesterol 35 mg/dl (40-60); Magnesium 1.7 mg/dl (1.6-2.3); Potassium 4.5 mmoL/L (3.5-5.1); Sodium 141 mmol/L (136-145); Total Protein,Serum 6.8 g/dl (6.3-8.2); Triglycerides 90 mg/dl (30-150); VLDL Cholesterol 18 mg/dL (0-40)
[2022-04-30 10:50] LABS: Direct LDL Cholesterol 57.21 mg/dL (100-129)
[2022-04-30 10:56] LABS: Free T4 (Free Thyroxine) 0.87 ng/dl (0.78-2.19)
[2022-04-30 11:10] LABS: Thyroid Stimulating Hormone 2.07 uIU/mL (0.465-4.68)
== END ==
PROVIDERS: PCP Family Medicine; Visit Provider Nurse Practitioner Family
DX: E78.5 Hyperlipidemia, unspecified (principal); I10 Essential (primary) hypertension; I25.10 Atherosclerotic heart disease of native coronary artery without angina pectoris; I65.23 Occlusion and stenosis of bilateral carotid arteries; R06.00 Dyspnea, unspecified; R09.89 Other specified symptoms and signs involving the circulatory and respiratory systems; R53.1 Weakness; Z95.810 Presence of automatic (implantable) cardiac defibrillator; E78.2 Mixed hyperlipidemia; I25.5 Ischemic cardiomyopathy; I48.0 Paroxysmal atrial fibrillation
CPT/HCPCS: 36415; 78452; 80048; 80061; 80076; 83735; 84439; 84443; 85025; 93017; 93306; A9502; J2785

== ENCOUNTER → 2023-02-14 14:10 | Outpatient (CLI) | payer MEDICARE, OTHER, SELFPAY ==
--- NOTE | 2023-02-14 14:16 | XR_ITS ---
FINAL REPORT CLINICAL HISTORY: LT SIDED NECK PAIN FINDINGS: CERVICAL SPINE Five views demonstrate no acute fracture. There are mild and moderate degenerative changes with osteophytes. There is chronic calcification posterior to C6. The oblique views are suboptimal. There is moderate neural foraminal narrowing at C6-7 bilaterally. There is no malalignment. IMPRESSION: Degenerative changes with bilateral neural foraminal narrowing at C6-7. Reviewed, Interpreted and Dictated by Josesito Key III, MD Transcribed by Leilani Cabrera Authenticated and [facility]
== END ==
PROVIDERS: PCP Nurse Practitioner Family; Visit Provider Nurse Practitioner Family
DX: M54.2 Cervicalgia (principal)
CPT/HCPCS: 72050

== ENCOUNTER 2023-03-06 08:51 | Day surgery (SDC) | payer MEDICARE, OTHER, SELFPAY ==
[2023-03-06] VITALS (10 sets, daily range): BP systolic 115–178; BP diastolic 64–98; PULSE 42–78; RESP 16–18; O2SAT 91–96; BMI 36.8
--- NOTE | 2023-03-06 08:16 | IR_ITS ---
APPROVED REPORT Patient Location: Outpatient PROCEDURES Left heart catheterization Left ventriculogram Selective coronary angiogram INDICATION Known coronary artery disease, Abnormal Myoview, Accelerated angina pectoris Informed consent was obtained prior to the procedure. COMPLICATIONS NONE Estimated Blood Loss: LESS THAN 10 ML TECHNIQUE One percent lidocaine used to anesthetize the right anterior aspect of the wrist. The right radial artery was accessed via the Seldinger technique. A 6 Kyrgyz sheath was placed in the right radial artery. 150 mg magnesium sulfate, 800 mcg of nitroglycerin, 1mg Lidocaine and 5000 U Heparin were given through the arterial sheath. The papa catheter was also used to perform left heart catheterization, left ventriculogram and selective coronary angiogram. At the end of the procedure the sheath was removed good hemostasis was achieved using Traclet band, patient was transferred to the postop holding area in stable condition. ANGIOGRAPHIC RESULTS The left main artery Normal The left anterior descending artery Has proximal 30% stenosis followed by a proximal to mid vessel stent which is widely patent with minimal in-stent restenosis. There is excellent distal transitioning of the stent. The remaining LAD is widely patent with minimal atheromatous plaque The circumflex artery Is a large nondominant vessel gives rise to a large 3 mm obtuse marginal artery which has a proximal to mid vessel 60% concentric stenosis. The right coronary artery Is a dominant vessel and has mid vessel 40 to 50% stenosis with a distal 40% stenosis. A large posterior descending artery has a stent in the proximal segment which is widely patent with a 50% concentric in-stent restenotic lesion in the midportion followed by an additional 50 to 60% stenosis in the mid to distal posterior descending artery The CELESTE ventriculogram reveals Dilated ventricle with ejection fraction of 45% The left ventricular end-diastolic pressure Severely elevated at 40 mmHg IMPRESSION Coronary artery disease as described above Dilated ventricle with mildly reduced ejection fraction Severely elevated LVEDP PLAN 1. At this point I recommend medical management for the coronary artery disease. I suspect patient's angina pectoris stems from his severely elevated LVEDP 2. Patient drinks lots of Pepsi and it is encouraged that he discontinue all carbonated drinks and stick with water. 3. Lasix 40 daily plus Aldactone 25 mg daily will be prescribed with plans to uptitrate in order to decrease LVEDP which should improve angina 4. Aggressive risk factor modification for coronary disease 5. Following adequate treatment of the diastolic dysfunction and decreasing LVEDP, should patient continue with recalcitrant angina pectoris he can be brought back to the Photocom[facility] [employer] [facility] with consideration revascularize the circumflex artery and possibly the posterior descending artery. At this point it appears patient's symptoms stem from elevated LVEDP which is causing decreased coronary perfusion Electronically signed by : Jj Gann MD 03/06/2023 14:32:15
[2023-03-06 09:34] LABS: Basophils % 0.5 % (0.1-2.0); Eosinophils # 0.2 K/mm3 (0.0-0.4); Eosinophils % 3.6 % (0.1-12.0); Hematocrit 40.3 % (42.0-52.0); Hemoglobin 13.1 g/dL (14.1-18.0); Lymphocytes # 1.6 K/mm3 (0.7-4.5); Lymphocytes % 23.1 % (10-50); Mean Corpuscular HGB Conc 32.6 g/dL (31.8-35.4); Mean Corpuscular Hemoglobin 29.6 pg (27.0-31.2); Mean Corpuscular Volume 90.7 fl (80-94); Monocytes # 0.5 K/mm3 (0.1-1.0); Monocytes % 7.4 % (1.7-9.3); Neutrophils # 4.5 K/mm3 (1.8-7.8); Neutrophils % 65.5 % (37.0-80.0); Platelet Count 299 K/mm3 (142-424); Red Blood Count 4.44 M/mm3 (4.60-6.20); Red Cell Distribution Width 13.7 % (11.5-17.5); White Blood Count 6.9 K/mm3 (4.8-10.8)
[2023-03-06 09:35] LABS: Chloride 99 mmol/L (98-107); Sodium 139 mmol/L (136-145)
[2023-03-06 09:38] LABS: Blood Urea Nitrogen 16 mg/dl (9-20); Carbon Dioxide 24 mmol/L (22.0-30.0); Creatinine Clearance Estimated 128 mL/min (50-200); Estimated Glomerular Filt Rate 84 ml/min (>60); GFR (African American) 101 ML/MIN (>60); Glucose 119 mg/dl (74-100)
== END 2023-03-06 14:14 | disposition home or self-care (01) ==
PROVIDERS: PCP Family Medicine; Visit Provider Internal Medicine
DX: R07.9 Chest pain, unspecified (principal); I65.23 Occlusion and stenosis of bilateral carotid arteries; I48.0 Paroxysmal atrial fibrillation; Z79.01 Long term (current) use of anticoagulants; I25.110 Atherosclerotic heart disease of native coronary artery with unstable angina pectoris; I10 Essential (primary) hypertension; T82.855A Stenosis of coronary artery stent, initial encounter; Z79.899 Other long term (current) drug therapy; Z95.5 Presence of coronary angioplasty implant and graft; Y83.8 Other surgical procedures as the cause of abnormal reaction of the patient, or of later complication, without mention of misadventure at the time of the procedure
CPT/HCPCS: 80048; 85025; 93458; 99152; C1725; C1760; C1769; J1644; Q9967

== ENCOUNTER → 2023-03-18 13:51 | Outpatient (CLI) | payer MEDICARE, OTHER, SELFPAY ==
[2023-03-18 15:53] LABS: Basophils % 0.6 % (0.1-2.0); Eosinophils # 0.1 K/mm3 (0.0-0.4); Hematocrit 41.2 % (42.0-52.0); Hemoglobin 13.7 g/dL (14.1-18.0); Lymphocytes # 1.3 K/mm3 (0.7-4.5); Lymphocytes % 18.7 % (10-50); Mean Corpuscular HGB Conc 33.2 g/dL (31.8-35.4); Mean Corpuscular Hemoglobin 29.8 pg (27.0-31.2); Mean Corpuscular Volume 89.6 fl (80-94); Mean Platelet Volume 8.4 fl (7.4-10.4); Monocytes # 0.5 K/mm3 (0.1-1.0); Monocytes % 6.7 % (1.7-9.3); Neutrophils # 4.8 K/mm3 (1.8-7.8); Platelet Count 362 K/mm3 (142-424); Red Blood Count 4.59 M/mm3 (4.60-6.20); Red Cell Distribution Width 13.7 % (11.5-17.5); White Blood Count 6.7 K/mm3 (4.8-10.8)
[2023-03-18 16:32] LABS: Chloride 96 mmol/L (98-107)
[2023-03-18 16:33] LABS: Potassium 4.7 mmoL/L (3.5-5.1); Sodium 136 mmol/L (136-145)
[2023-03-18 16:35] LABS: Alanine Aminotransferase 35 U/L (12-78); Alkaline Phosphatase 112 U/L (38-126); Anion Gap 18.7 mEq/L (5-15); Aspartate Amino Transferase 37 U/L (17-59); Bilirubin,Indirect 0.9 mg/dL (0.0-0.9); Bilirubin,Total 0.9 mg/dl (0.2-1.3); Bilirubin,Unconjugated 0.9 mg/dL (0.0-1.1); Blood Urea Nitrogen 23 mg/dl (9-20); Carbon Dioxide 26 mmol/L (22.0-30.0); Cholesterol 119 mg/dl (140-200); Estimated Glomerular Filt Rate 66 ml/min (>60); GFR (African American) 80 ML/MIN (>60); Triglycerides 162 mg/dl (30-150); VLDL Cholesterol 32 mg/dL (0-40)
[2023-03-18 16:36] LABS: Albumin Level 4.6 g/dl (3.5-5.0); Calcium 9.6 mg/dl (8.4-10.2); Chol/HDL Ratio 3.2 (1-3.5); Glucose 118 mg/dl (74-100); HDL Cholesterol 37 mg/dl (40-60); Total Protein,Serum 7.3 g/dl (6.3-8.2)
[2023-03-18 16:47] LABS: Direct LDL Cholesterol 57.84 mg/dL (100-129)
[2023-03-18 16:51] LABS: Free T4 (Free Thyroxine) 0.83 ng/dl (0.78-2.19)
[2023-03-18 17:06] LABS: Thyroid Stimulating Hormone 1.47 uIU/mL (0.465-4.68)
== END ==
PROVIDERS: PCP Family Medicine; Visit Provider Nurse Practitioner
DX: E78.2 Mixed hyperlipidemia (principal); I10 Essential (primary) hypertension; I25.118 Atherosclerotic heart disease of native coronary artery with other forms of angina pectoris; I25.5 Ischemic cardiomyopathy; I48.0 Paroxysmal atrial fibrillation; I51.9 Heart disease, unspecified; I65.23 Occlusion and stenosis of bilateral carotid arteries; R06.00 Dyspnea, unspecified; Z95.810 Presence of automatic (implantable) cardiac defibrillator
CPT/HCPCS: 36415; 80048; 80061; 80076; 83735; 84439; 84443; 85025

== ENCOUNTER 2023-06-25 11:39 | Observation (INO) | payer MEDICARE, OTHER, SELFPAY ==
[2023-06-25] VITALS (21 sets, daily range): BP systolic 95–147; BP diastolic 52–93; PULSE 55–78; RESP 16–24; TEMP 36.7–37.1; O2SAT 92–98; BMI 35.9; BMI 36.2
--- NOTE | 2023-06-25 | IR_ITS ---
APPROVED REPORT Patient Location: Emergent Electroencephalograph Technologist: DARNELL Glasgow RT (R) PROCEDURES Left heart catheterization Left ventriculogram Selective coronary angiogram Intravascular ultrasound to the proximal and mid LAD Drug-eluting stent deployment to the proximal [address] elevation myocardial infarction, New onset left bundle branch block in the setting of chest pain/angina pectoris Informed consent was obtained prior to the procedure. COMPLICATIONS None Estimated Blood Loss: Less than 10 ml TECHNIQUE One percent lidocaine used to anesthetize the right anterior aspect of the wrist. The right radial artery was accessed via the Seldinger technique. A 6 Lao sheath was placed in the right radial artery. 2.5 mg of Verapamil, 800 mcg of nitroglycerin, 1mg Lidocaine and 5000 U Heparin were given through the arterial sheath. The papa catheter was also used to perform left heart catheterization, left ventriculogram and selective coronary angiogram. At the end the diagnostic angiogram therapeutic Was administered giving a therapeutic ACT and the guide catheter was placed in left main artery followed by Choice PT extra-support wire. Intravascular ultrasound probe was advanced which demonstrated a severely undersized proximal LAD stent with heavy plaque burden in excess of 70% plaque burden with an MLA of 4 mm???. Because of this a 3.5 x 34 mm [place] frontier stent was deployed at 28 nohelia in the proximal LAD significantly reducing the calcified heavily plaque burden stenosis. Intravascular ultrasound probe was repeated which demonstrated significant improvements with greater luminal diameter. At the end of the procedure the apparatus was removed the sheath was removed and hemostasis was achieved using TR banding patient was transferred to the postop holding in stable condition. ERIN-3 flow was present before and after the procedure ANGIOGRAPHIC RESULTS The left main artery Normal The left anterior descending artery Has proximal hazy calcified stenosis followed by stents in the proximal LAD which appeared to be appropriately sized with good expansion and were patent throughout the mid portion where there was excellent distal transitioning. The remaining LAD was widely patent and wraps the apex The circumflex artery Is nondominant large vessel which has long 40 to 50% stenosis in the mid circumflex artery which extends proximal and distal to the first obtuse marginal artery extending into the second obtuse marginal artery The right coronary artery Is a dominant vessel and has mid vessel 40 to 50% stenosis with a distal 60 to 70% stenosis immediately proximal to a large posterior descending artery. Stents in the posterior descending artery are widely patent in the proximal segment with an eccentric 50% stenosis in the midportion. The CELESTE ventriculogram reveals Reduced at 45% The left ventricular end-diastolic pressure 10 mmHg IMPRESSION New onset left bundle branch block in the setting of chest pain which was felt to be STEMI however proved not to be a STEMI Severe disease throughout the proximal LAD with successful percutaneous revascularization significantly reducing the plaque burden and expanding stents and improving LAD flow Slightly reduced ejection fraction Normal left ventricular end-diastolic pressure PLAN 1. Plavix plus aspirin plus Xarelto x30 days then discontinue aspirin 2. LDL less than 55 to be achieved with high intensity statin 3. Avoidance of tobacco product 4. Risk factor modification 5. Cardiac rehabilitation 6. Official echocardiogram to better evaluate ejection fraction Electronically signed by : Jj Gann MD 06/25/2023 13:18:19
--- NOTE | 2023-06-25 11:38 | ECG_ITS ---
APPROVED REPORT Exam: Resting ECG HR:77 bpm ECG Measurements Heart Rate 77 AXES GA 176 P 19 QRSd 150 QRS -62 QT 418 T 93 QTc 449 Conclusion SINUS RHYTHM WITH OCCASIONAL VENTRICULAR PREMATURE COMPLEXES LEFT AXIS DEVIATION [QRS AXIS < -30] LEFT BUNDLE BRANCH BLOCK [120+ ms QRS DURATION, 80+ ms Q/S IN V1/V2, 85+ ms R IN I/aVL/V5/V6] ABNORMAL ECG UNCONFIRMED REPORT Electronically signed by : Elian Barrera MD 06/26/2023 06:43:38
--- NOTE | 2023-06-25 11:50 | XR_ITS ---
FINAL REPORT CLINICAL HISTORY: chest pain COMPARISON: 11/19/2019 FINDINGS: TWO-VIEW CHEST The heart size is normal. The mediastinum is normal. A pacer is identified. The lungs are clear. There is no pneumothorax. IMPRESSION: No acute cardiopulmonary process. Reviewed, Interpreted and Dictated by Juan Hackett MD Transcribed by Leilani Cabrera Authenticated and . [facility]
[2023-06-25 12:01] LABS: Basophils % 0.3 % (0.1-2.0); Eosinophils # 0.2 K/mm3 (0.0-0.4); Eosinophils % 2.4 % (0.1-12.0); Hematocrit 41.3 % (42.0-52.0); Hemoglobin 13.5 g/dL (14.1-18.0); Lymphocytes # 1.3 K/mm3 (0.7-4.5); Lymphocytes % 15.5 % (10-50); Mean Corpuscular HGB Conc 32.6 g/dL (31.8-35.4); Mean Corpuscular Hemoglobin 29.8 pg (27.0-31.2); Mean Corpuscular Volume 91.1 fl (80-94); Mean Platelet Volume 8.1 fl (7.4-10.4); Monocytes # 0.4 K/mm3 (0.1-1.0); Monocytes % 5.4 % (1.7-9.3); Neutrophils # 6.2 K/mm3 (1.8-7.8); Neutrophils % 76.4 % (37.0-80.0); Platelet Count 342 K/mm3 (142-424); Red Blood Count 4.53 M/mm3 (4.60-6.20); Red Cell Distribution Width 13.3 % (11.5-17.5); White Blood Count 8.1 K/mm3 (4.8-10.8)
--- NOTE | 2023-06-25 12:07 | PC.NURSE ---
pt to xray
[2023-06-25 12:11] LABS: Chloride 103 mmol/L (98-107)
[2023-06-25 12:12] LABS: Potassium 4.4 mmoL/L (3.5-5.1); Sodium 139 mmol/L (136-145)
--- NOTE | 2023-06-25 12:12 | PC.NURSE ---
DR WALKER SPEAKING WITH DR AYALA
[2023-06-25 12:14] LABS: Blood Urea Nitrogen 24 mg/dl (9-20); Creatinine Clearance Estimated 114 mL/min (50-200); Estimated Glomerular Filt Rate 66 ml/min (>60); GFR (African American) 80 ML/MIN (>60)
[2023-06-25 12:15] LABS: Anion Gap 14.4 mEq/L (5-15); Calcium 9.9 mg/dl (8.4-10.2); Carbon Dioxide 26 mmol/L (22.0-30.0); Glucose 126 mg/dl (74-100)
--- NOTE | 2023-06-25 12:19 | HMH.EDGENADL ---
Discharge Plan Disposition Patient Disposition: Admitted Clinical Impressions Clinical Impression: New onset right bundle branch block (RBBB) Discharge ED Provider: Jacob Toscano Adult HPI General Chief complaint: Chest Pain Stated complaint: CP Time Seen by Provider: 06/25/23 12:07 Mode of Arrival: Ambulatory Source of Information: Patient Limitations: No Limitations Description of Symptoms (Recalled from ER Triage Doc. by RN): Pt reports right sided sharp chest pain with movement for about a week . Pt says he does not have the pain at rest and denies SOA, N/V, dizziness, cough, swelling in extremities or diaphoresis. Pt reports being under alot of stress recently with the passing of his mother and a coworker but he has a hx of 3 stents in 2017 and a cardiac arrest in 2018. History of Present Illness HPI narrative: This 67-year-old male presents to the emergency department with sharp chest pain with movement for approximately 1 week. He also describes pressure but no pain at rest. He denies shortness of breath, fever, chills, cough, or leg swelling. He states he has lost multiple people recently and has had a lot of stress. Patient has history of heart attack in the past and has multiple stents. Most recent cardiac cath was in March. Patient states he has a sharp pulling sensation across his chest when he moves the right arm but continues to have pressure at rest in the central chest. He states he is taking all home medications as prescribed. Related Data Home Medications Medication Instructions Recorded Confirmed aspirin 81 mg tablet,delayed 81 mg PO DAILY heart health 11/05/17 06/25/23 release (Adult Low Dose Aspirin) famotidine 20 mg tablet 20 mg PO BID Acid Reflux 11/19/19 06/25/23 atorvastatin 80 mg tablet 80 mg PO HS Cholesterol 03/06/23 06/25/23 rivaroxaban 20 mg tablet (Xarelto) 20 mg PO QPMWITHMEAL Blood 03/06/23 06/25/23 thinner/Afib furosemide 40 mg tablet 40 mg PO DAILY Fluid 06/25/23 06/25/23 lisinopril 10 mg tablet 10 mg PO DAILY High Blood Pressure 06/25/23 06/25/23 spironolactone 25 mg tablet 25 mg PO DAILY Fluid 06/25/23 06/25/23 Previous Rx's Medication Instructions Recorded metoprolol succinate 50 mg 50 mg PO BID High blood pressure 06/18/23 tablet,extended release 24 hr #60 tabs Allergies Allergy/AdvReac Type Severity Reaction Status Date / Time esomeprazole [From NEXIUM] Allergy Mild Verified 04/21/23 10:[address] [facility] Disclaimer: The information contained in this section may have been updated after the patient was seen, as this information can be updated by other users. Medical History Atrial fibrillation Cardiomyopathy Coronary artery disease HLD (hyperlipidemia) HTN (hypertension) Myocardial infarction Surgical History History of back surgery Family History Coronary artery disease Social History Smoking Status: Never smoker alcohol intake: never substance use type: denies use current occupational status: disabled Travel in the last 8 weeks: Inside the [place] ROS Obtained: Yes All systems reviewed & no additional complaints except as documented Constitutional Constitutional: Denies chills, Denies fever(s), Denies headache(s) and Denies weakness Eyes Eyes: Denies change in vision ENT Ears, Nose, Mouth, and Throat: Denies dizziness, Denies headache(s), Denies nasal congestion and Denies sore throat Cardiovascular Cardiovascular: Reports chest pain, Denies dyspnea and Denies leg edema Respiratory Respiratory: Denies cough and Denies dyspnea Gastrointestinal Gastrointestingal: Denies constipation, diarrhea, nausea or vomiting Genitourinary Male Genitourinary: Denies difficulty urinating Musculoskeletal Musculoskeletal: Denies arthralgias
--- NOTE | 2023-06-25 12:42 | PC.NURSE ---
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
[2023-06-25 12:55] LABS: Troponin I < 0.01 ng/ml (0.00-0.034)
[2023-06-25 13:30] LABS: CATHL Activated Clotting Time > 400 SEC (74-125)
--- NOTE | 2023-06-25 13:49 | CA_ITS ---
APPROVED REPORT EXAM: Comprehensive 2D, Doppler, and color-flow Echocardiogram Excel Developer: Bri Mauro, NICOLASA, RVS Ht: 6 ft 2 in Wt: 280lbs BSA: 2.51 BP: 121/71 mmHg Indications: CP, AFIB, PACER, CAD STNTS, OLD [place], HTN, HLD, OBESITY 2D Dimensions IVSd 1.22 cm LVEF (Visual) 55.00 % PWd 1.41 cm LA Volume 56.30 mL LVDd 5.52 cm M: 4.2 - 5.9 LA Volume Index 21.90 mL/m2 (M/F) 16-34 LVDs 4.00 cm M: 2.5 - 4.0 Aortic Root 3.50 cm Left Atrium 2.86 cm LVOT 2.18 cm (M/F) 1.5-2.5 M-Mode Dimensions RVDd 2.16 cm (0.9-2.6) LA Diam 3.11 cm (1.9-4.0) LVDd 5.21 cm (3.5-5.7) Ao Diam 4.02 cm (2.0-3.7) LVDs 3.94 cm (3.5-5.7) IVSd 1.20 cm (0.6-1.1) PWd 1.27 cm (0.6-1.1) EF (Teich) 48.10% EPSs 1.32 cm FS 24.40% EDV (Teich) 130.10 mL TAPSE 1.97 (<1.7) ESV (Teich) 67.50 mL LV Diastology E Decel Time 222.00 (160-240 msec) E/A Ratio 1.04 MED E' 6.00 (< 7 cm/sec) MED A' 8.60 cm/s E'/MED E' Ratio 12.15 (>14) LAT E' 6.60 (<10 cm/sec) LAT A' 9.40 cm/s E/LAT E' Ratio 11.05 (>14) Aortic Valve LVOT Max 90.00 (70-110 cm/s) LVOT VTI 18.69 cm AoV Peak Brady. 111.00 (50-130 cm/s) AI PHT 622.00 ms AO Peak GR. 4.90 mmHg AO Mean GR. 2.40 (<5 mmHg) AO VTI 22.17 (18-25 cm) NESHA (VTI) 3.15 (2.5-4.5 cm2) Mitral Valve MV E Max Brady. 73.00 (40-130 cm/s) MV A Velocity 70.00 (40-130 cm/s) E/A Ratio 1.04 MV Decel. Time 222.00 (160-240 ms) MV Mean Gr. 0.50 (<2mmHg) MV PHT 65.00 ms Pulmonary Valve PV Peak Velocity 74.00 (50-150 cm/s) Tricuspid Valve TR P. Velocity 181.00 cm/s Left Ventricle The left ventricle is normal size. The left ventricular systolic function is normal. The left ventricular ejection fraction is within the normal range. There is increased LV wall thickness. There is normal LV segmental wall motion. Diastolic function is not assessed in this study. LVEF is 50-55%. Right Ventricle The right ventricle is normal size. The right ventricular systolic function is normal. There is a device lead in the RV. Atria The left atrium size is normal. The right atrium size is normal. Aortic Valve The aortic valve opens well. There is no aortic valvular stenosis. Mild aortic regurgitation. Mitral Valve The mitral valve is normal in structure. No evidence of mitral valve stenosis. There is no mitral valve regurgitation noted. Tricuspid Valve The tricuspid valve leaflets are thin and pliable. There is trace tricuspid regurgitation. RVSP is 15 mmHg + RA pressure. Pulmonic Valve The pulmonary valve is grossly normal in structure. Trace pulmonic regurgitation. Great Vessels The aortic root is normal in size. The ascending aorta is normal in size. The IVC is not well visualized. Pericardium There is no pericardial effusion. Other Information Study Quality: Technically Difficult Conclusion This was a technically difficult study due to poor accoustic windows. Normal biventricular systolic function. No significant valvular disease. Electronically signed by : Sally Mondragon, 06/26/2023 18:55:20
--- NOTE | 2023-06-25 13:49 | EXP.HP ---
History of Present Illness *Admission Date: 06/25/23 *Reason for visit:: chest pain *History of present illness: Mr. Lilly is a 67-year-old male with history of CAD. Presented to the ER today with onset of right-sided sharp chest pain. States he has had the pain for about a week. Worse with movement. Not reproducible on exam. Not present all the time at rest. Denies any shortness of breath, nausea, vomiting, cough, diaphoresis. No reported chest trauma. Was seen in March for left heart cath with noncritical findings. Recommended at that time to medically manage his CAD and heart disease. Last cath with stents was in 2017. States he has been under a lot of stress lately with the loss of his mother and a close friend in the beginning of this week. On arrival to the ER, EKG obtained showing new left bundle branch block. Reports compliance with his home regimen. Due to change in EKG and presenting symptoms, cardiology was contacted. Decision made to take patient to the [facility] Integrated for further evaluation out of concern for unstable angina. ER consulted medicine for admission after heart cath. After arriving to the floor, patient is in good spirits. Denies any shortness of breath. Does have some pain with movement on the right side. Cath findings as follows: IMPRESSION New onset left bundle branch block in the setting of chest pain which was felt to be STEMI however proved not to be a STEMI Severe disease throughout the proximal LAD with successful percutaneous revascularization significantly reducing the plaque burden and expanding stents and improving LAD flow Slightly reduced ejection fraction Normal left ventricular end-diastolic pressure [facility] Disclaimer: The information contained in this section may have been updated after the patient was seen, as this information can be updated by other users. Medical History Atrial fibrillation Cardiomyopathy Coronary artery disease HLD (hyperlipidemia) HTN (hypertension) Myocardial infarction Surgical History History of back surgery Family History Coronary artery disease Social History Smoking Status: Never smoker alcohol intake: never substance use type: denies use current occupational status: disabled Travel in the last 8 weeks: Inside the [place] Review of Systems Review of Systems Review of systems (narrative): 14 point review of systems performed, pertinent positives and negatives as per HPI Constitutional Constitutional: Denies headache(s) and Denies weakness ENT Ears, Nose, Mouth, and Throat: Denies dizziness and Denies headache(s) *Musculoskeletal Musculoskeletal: Denies numbness and Denies tingling *Neurologic Neurologic: Denies dizziness, Denies headache(s), Denies numbness, Denies tingling and Denies weakness Meds Home Medications and Allergies Home Medications Medication Instructions Recorded Confirmed Type aspirin 81 mg tablet,delayed 81 mg PO DAILY heart health 11/05/17 06/25/23 History release (Adult Low Dose Aspirin) famotidine 20 mg tablet 20 mg PO BID Acid Reflux 11/19/19 06/25/23 History atorvastatin 80 mg tablet 80 mg PO HS Cholesterol 03/06/23 06/25/23 History rivaroxaban 20 mg tablet (Xarelto) 20 mg PO QPMWITHMEAL Blood 03/06/23 06/25/23 History thinner/Afib metoprolol succinate 50 mg 50 mg PO BID High blood pressure 06/18/23 06/25/23 Rx tablet,extended release 24 hr #60 tabs furosemide 40 mg tablet 40 mg PO DAILY Fluid 06/25/23 06/25/23 History lisinopril 10 mg tablet 10 mg PO DAILY High Blood Pressure 06/25/23 06/25/23 History spironolactone 25 mg tablet 25 mg PO DAILY Fluid 06/25/23 06/25/23 History New Prescriptions to Start Prescriptions: Allergies Allergy/AdvReac Type Severity Reaction Status Date / Messi
--- NOTE | 2023-06-25 14:06 | PC.NURSE ---
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
--- NOTE | 2023-06-25 14:39 | EXP.CARD.CON ---
History of Present Illness History of Present Illness Consult date: 06/25/23 Requesting physician: Jeff Au Consult reason: chest pain Chief complaint: chest pain History of present illness: 67 year old male with past medical hx of CAD, Diastolic dysfunction, afib on xarelto, hx of cardiomyopathy with recovered ef s/p aicd is currently admitted s/p left heart cath. Patient came to ED today with complaint of sharp right sided chest pain x 1 week. Patient was taken to cath laboratory technician from ER for new onset LBBB in the setting of chest pain and received stenting to LAD. See cath report below ANGIOGRAPHIC RESULTS The left main artery Normal The left anterior descending artery Has proximal hazy calcified stenosis followed by stents in the proximal LAD which appeared to be appropriately sized with good expansion and were patent throughout the mid portion where there was excellent distal transitioning. The remaining LAD was widely patent and wraps the apex The circumflex artery Is nondominant large vessel which has long 40 to 50% stenosis in the mid circumflex artery which extends proximal and distal to the first obtuse marginal artery extending into the second obtuse marginal artery The right coronary artery Is a dominant vessel and has mid vessel 40 to 50% stenosis with a distal 60 to 70% stenosis immediately proximal to a large posterior descending artery. Stents in the posterior descending artery are widely patent in the proximal segment with an eccentric 50% stenosis in the midportion. The CELESTE ventriculogram reveals Reduced at 45% The left ventricular end-diastolic pressure 10 mmHg IMPRESSION New onset left bundle branch block in the setting of chest pain which was felt to be STEMI however proved not to be a STEMI Severe disease throughout the proximal LAD with successful percutaneous revascularization significantly reducing the plaque burden and expanding stents and improving LAD flow Slightly reduced ejection fraction Normal left ventricular end-diastolic pressure [facility] Disclaimer: The information contained in this section may have been updated after the patient was seen, as this information can be updated by other users. Medical History Atrial fibrillation Cardiomyopathy Coronary artery disease HLD (hyperlipidemia) HTN (hypertension) Myocardial infarction Surgical History History of back surgery Family History Other Coronary artery disease Social History (Updated 06/25/23 @ 14:21 by Keysha Renner RN) Smoking Status: Never smoker alcohol intake: never substance use type: denies use current occupational status: disabled Travel in the last 8 weeks: Inside the [place] Review of Systems Constitutional Constitutional: Denies headache(s) and Denies weakness ENT Ears, Nose, Mouth, and Throat: Denies dizziness and Denies headache(s) *Cardiovascular Cardiovascular: Reports chest pain Comments: Exacerbated with right arm movement *Musculoskeletal Musculoskeletal: Denies numbness and Denies tingling *Neurologic Neurologic: Denies dizziness, Denies headache(s), Denies numbness, Denies tingling and Denies weakness Exam Data for Last 24 hours Vital signs and Labs for Last 24 Hours: Temp Pulse Resp BP Pulse Ox O2 Del Method 98.2 F 60 20 97/68 L 97 Room Air 06/25/23 12:48 06/25/23 14:15 06/25/23 14:15 06/25/23 14:15 06/25/23 14:15 06/25/23 14:28 Laboratory Results - last 24 hr 06/25/23 11:44: WBC 8.1, RBC 4.53 L, Hgb 13.5 L, Hct 41.3 L, MCV 91.1, MCH 29.8, MCHC 32.6, RDW 13.3, Plt Count 342, MPV 8.1, Neut % (Auto) 76.4, Lymph % (Auto) 15.5, [place] % (Auto) 5.4, Eos % (Auto) 2.4, Baso % (Auto) 0.3, Neut # (Auto) 6.2, Lymph # (Auto) 1.3, [place] # (Auto) 0.4, Eos # (Auto) 0.2, Baso # (Auto) 0.0, Sodium 139, Potassium 4.4, Chlo
--- NOTE | 2023-06-25 14:48 | HMH.PHAINT1 ---
Pharmacy Intervention Comments: MEDICATION RECONCILIATION COMPLETED ON PATIENT USING EXTERNAL FILL HISTORY FROM PHARMACY AND LIST FROM CARDIOLOGY OFFICE. -YUDELKA MENA, ARLENED
[2023-06-26] VITALS: BP 101/57; PULSE 53; PULSE 60; RESP 18; TEMP 36.9; O2SAT 95
[2023-06-26 04:00] VITALS: BP 118/70; PULSE 50; PULSE 55; RESP 18; TEMP 36.9; O2SAT 96; BMI 36.1
--- NOTE | 2023-06-26 05:45 | PC.NURSE ---
NO ACUTE CHANGES THIS SHIFT. PT HAS RESTED WELL. NO C/O CHEST PAIN/TIGHTNESS OR SHORTNESS OF BREATH. RADIAL CATH SITE DRESSING HAS A SCANT AMOUNT OF BLOOD ON IT.
--- NOTE | 2023-06-26 07:02 | EXP.DC.SUM ---
General Admission date:: 06/25/23 Discharge date: 06/26/23 HPI HPI HPI: Mr. Lilly is a 67-year-old male with history of CAD. Presented to the ER today with onset of right-sided sharp chest pain. States he has had the pain for about a week. Worse with movement. Not reproducible on exam. Not present all the time at rest. Denies any shortness of breath, nausea, vomiting, cough, diaphoresis. No reported chest trauma. Was seen in March for left heart cath with noncritical findings. Recommended at that time to medically manage his CAD and heart disease. Last cath with stents was in 2017. States he has been under a lot of stress lately with the loss of his mother and a close friend in the beginning of this week. On arrival to the ER, EKG obtained showing new left bundle branch block. Reports compliance with his home regimen. Due to change in EKG and presenting symptoms, cardiology was contacted. Decision made to take patient to the [facility] for further evaluation out of concern for unstable angina. ER consulted medicine for admission after heart cath. After arriving to the floor, patient is in good spirits. Denies any shortness of breath. Does have some pain with movement on the right side. Cath findings as follows: IMPRESSION New onset left bundle branch block in the setting of chest pain which was felt to be STEMI however proved not to be a STEMI Severe disease throughout the proximal LAD with successful percutaneous revascularization significantly reducing the plaque burden and expanding stents and improving LAD flow Slightly reduced ejection fraction Normal left ventricular end-diastolic pressure Hospital Course Hospital Course Hospital Course: 67-year-old male who presented with chest pain and finding of new left bundle branch block. Taken to the [facility] for presumed STEMI. Received stent to the LAD due to significant disease. Discussed case with cardiology in the ER. Both requested admission for monitoring overnight. Patient did well overnight with no further issues. Chest pain somewhat improved this morning. Stable for discharge home. Problems addressed as follows: Unstable angina CAD Paroxysmal atrial fibrillation Ischemic cardiomyopathy Heart failure with preserved ejection fraction -Presented with chest pain and new left bundle branch block. Patient taken to the [facility] for further evaluation. Found to have clinically significant disease with placement of 1 stent to the LAD. Cardiology continue to follow along and assist with management. Patient initiated on dual antiplatelet therapy with aspirin and Plavix. Continue metoprolol succinate 50 mg daily and Lipitor 80 mg daily. Plan to continue his Xarelto for his paroxysmal A-fib. Echocardiogram was obtained with preliminary read showing preserved ejection fraction, formal read still pending. Previous echo 04/24 with preserved ejection fraction. Initiated on Jardiance. No events overnight on telemetry. Stable for discharge home with continued medical management. Hypertension: Continue lisinopril 10 mg daily and metoprolol as above. Plan for close follow-up with cardiology as an outpatient. Exam Data for Last 24 hours Vital signs and Labs for Last 24 Hours: Temp Pulse Resp BP Pulse Ox O2 Del Method 98.4 F 55 L 18 118/70 96 Room Air 06/26/23 04:00 06/26/23 04:00 06/26/23 04:00 06/26/23 04:00 06/26/23 04:00 06/26/23 06:45 Laboratory Results - last 24 hr 06/25/23 11:44: WBC 8.1, RBC 4.53 L, Hgb 13.5 L, Hct 41.3 L, MCV 91.1, MCH 29.8, MCHC 32.6, RDW 13.3, Plt Count 342, MPV 8.1, Neut % (Auto) 76.4, Lymph % (Auto) 15.5, [place] % (Auto) 5.4, Eos % (Auto) 2.4, Baso % (Auto) 0.3, Neut # (Auto) 6.2, Lymph # (Auto) 1.3, [place] # (Auto) 0.4, Eos # (Auto) 0.2, Baso # (Auto) 0.0, Sodium 139, Potassium 4.4, Chloride 103, Carbon Dioxide 26, Anion Gap 14.4, BUN 24 H, Creatinine 1.10, Estimated Creat Clear 114, Estimated GFR 66, Est GFR ( Amer) 80, Gl
[2023-06-26 07:28] VITALS: BP 136/71; PULSE 61; RESP 16; TEMP 36.5; O2SAT 96
--- NOTE | 2023-06-26 09:02 | EXP.CARD.PN ---
Subjective Subjective Date: 06/26/23 Time: 08:00 Principal diagnosis: cad Interval history: Doing well this morning. Denies chest pain or shortness of breath. Exam Data for Last 24 hours Vital signs and Labs for Last 24 Hours: Temp Pulse Resp BP Pulse Ox O2 Del Method 97.7 F 61 16 136/71 96 Room Air 06/26/23 07:28 06/26/23 07:28 06/26/23 07:28 06/26/23 07:28 06/26/23 07:28 06/26/23 07:28 Laboratory Results - last 24 hr 06/25/23 11:44: WBC 8.1, RBC 4.53 L, Hgb 13.5 L, Hct 41.3 L, MCV 91.1, MCH 29.8, MCHC 32.6, RDW 13.3, Plt Count 342, MPV 8.1, Neut % (Auto) 76.4, Lymph % (Auto) 15.5, [place] % (Auto) 5.4, Eos % (Auto) 2.4, Baso % (Auto) 0.3, Neut # (Auto) 6.2, Lymph # (Auto) 1.3, [place] # (Auto) 0.4, Eos # (Auto) 0.2, Baso # (Auto) 0.0, Sodium 139, Potassium 4.4, Chloride 103, Carbon Dioxide 26, Anion Gap 14.4, BUN 24 H, Creatinine 1.10, Estimated Creat Clear 114, Estimated GFR 66, Est GFR ( Amer) 80, Glucose 126 H, Calcium 9.9, Troponin I < 0.01 06/25/23 12:49: Activated Clotting Time > 400 H* I & O for Last 24 hours: Intake & Output 06/23/23 06/24/23 06/25/23 06/26/23 23:59 23:59 23:59 23:59 Intake Total 980 / 980 300 / 300 Output Total 1250 / 1450 350 / 350 Balance -270 / -470 -50 / -50 Weight 282 lb 8 oz 281 lb 3 oz Constitutional Constitutional: no acute distress *Routine Respiratory Exam Respiratory: Present CTA bilaterally and symmetric chest movement *Routine Cardiovascular Exam Cardiovascular: Present RRR, Normal S1 and Normal S2 *Routine Abdominal Exam Abdominal: Present soft and normoactive bowel sounds; Absent tenderness *Routine Extremities Exam Extremities: Present full ROM and normal capillary refill; Absent edema Comments: Right radial access point-dressing intact and dry. No obvious redness or swelling noted. *Routine Skin Exam Skin: Present intact, dry and warm Detailed Neck Exam: Thyroids Thyroid: Absent bruit Progress Note: A&P Assessment and plan (1) Unstable angina: Status: Acute (2) HTN (hypertension): Status: Chronic (3) HLD (hyperlipidemia): Status: Chronic (4) Coronary artery disease: Status: Chronic (5) Cardiomyopathy: Status: Chronic (6) Atrial fibrillation: Status: Chronic Assessment and Plan Assessment and Plan for All Diagnoses:: CAD Presumed STEMI -[facility] 06/2023: Stent to LAD -Continue dapt with aspirin 81 mg p.o. daily, Plavix 75 mg p.o. daily, metoprolol succinate 50mg daily, and atorvastatin 80mg daily PAF chadsvasc score 5 -Currently nsr -continue metoprolol succinate 50mg daily and xarelto 15mg daily Hx of ischemic cardiomyopathy s/p aicd HFrecEF -EF 55 04/2022. -no signs of volume overload currently -Continue della/bb/aldactone, lasix- per home dose. Add jardiance HTN -Well controlled, continue lisinopril 10mg daily and metoprolol succinate 50mg daily HLD -LDL goal < 55, continue atorvastatin 80mg po daily. CV summary 06/26/2023: Patient CV stable for discharge home. Please have patient follow-up in cardiology clinic in 1 week for reevaluation. Please continue below listed medications. CV meds Aspirin 81 mg p.o. daily Plavix 75 mg p.o. daily Metoprolol succinate 50 mg p.o. daily Atorvastatin 80 mg p.o. daily Xarelto 15 mg p.o. daily Lasix 40 mg p.o. daily Jardiance 10 mg p.o. daily Aldactone 25 mg p.o. daily Lisinopril 10 mg p.o. daily
--- NOTE | 2023-06-27 14:23 | CARE MANAGER ---
Contacted patient related to hospital discharge. He states he is feeling better and picked up his medications. He denies any questions or concerns and is aware of follow up appointments. NAS Morton
== END 2023-06-26 09:17 | disposition home or self-care (01) ==
LOC: ER 12:19 → CATHLAB 12:34 → 2ND 13:17
PROVIDERS: Internal Medicine; Admitting Provider Internal Medicine Adolescent Medicine; Emergency Provider Emergency Medicine; PCP Nurse Practitioner Family; Visit Provider Internal Medicine Adolescent Medicine
DX: I10 Essential (primary) hypertension; E78.2 Mixed hyperlipidemia; I25.110 Atherosclerotic heart disease of native coronary artery with unstable angina pectoris; I25.5 Ischemic cardiomyopathy; I48.0 Paroxysmal atrial fibrillation; Z95.810 Presence of automatic (implantable) cardiac defibrillator; Z79.899 Other long term (current) drug therapy
CPT/HCPCS: 71046; 80048; 84484; 85025; 85347; 92928; 92978; 93005; 93306; 93458; 99152; 99285; C1725; C1760; C1769; C1876; C9600; G0378; J1644; Q9967

== ENCOUNTER 2023-07-04 09:30 | Outpatient (RCR) | payer MEDICARE, OTHER, SELFPAY | END 2023-08-29 15:30 | disposition home or self-care (01) | LOC: PT 09:30 | PROVIDERS: Visit Provider Internal Medicine | DX: I25.10 Atherosclerotic heart disease of native coronary artery without angina pectoris (principal); Z95.5 Presence of coronary angioplasty implant and graft | CPT/HCPCS: 93798 ==

== ENCOUNTER → 2023-09-12 15:08 | Outpatient (CLI) | payer MEDICARE, OTHER, SELFPAY ==
[2023-09-12 22:07] LABS: Occult Blood,Stool Negative (Negative)
[2023-09-17 14:34] LABS: Pancreatic Elastase, Fecal 128 (>200)
[2023-09-19 12:19] LABS: Calprotectin, Fecal 97 ug/g (0-120)
== END ==
PROVIDERS: PCP Nurse Practitioner Family; Visit Provider Nurse Practitioner
DX: R10.9 Unspecified abdominal pain (principal); R19.5 Other fecal abnormalities; R63.4 Abnormal weight loss; Z79.01 Long term (current) use of anticoagulants; R10.10 Upper abdominal pain, unspecified; R13.10 Dysphagia, unspecified
CPT/HCPCS: 82272; 82656; 83993; G0328

== ENCOUNTER → 2023-09-12 23:54 | Outpatient (CLI) | payer MEDICARE, OTHER, SELFPAY ==
[2023-09-12 13:28] LABS: Chloride 102 mmol/L (98-107); Potassium 4.7 mmoL/L (3.5-5.1); Sodium 138 mmol/L (136-145)
[2023-09-12 13:30] LABS: Blood Urea Nitrogen 26 mg/dl (9-20); Estimated Glomerular Filt Rate 60 ml/min (>60); GFR (African American) 72 ML/MIN (>60)
[2023-09-12 13:31] LABS: Alanine Aminotransferase 31 U/L (12-78); Albumin Level 4.5 g/dl (3.5-5.0); Albumin/Globulin Ratio 1.6 (1.1-1.8); Alkaline Phosphatase 111 U/L (38-126); Aspartate Amino Transferase 32 U/L (17-59); Bilirubin,Total 0.5 mg/dl (0.2-1.3); Calcium 8.8 mg/dl (8.4-10.2); Chol/HDL Ratio 4.4 (1-3.5); Cholesterol 132 mg/dl (140-200); Globulin 2.9 g/dL (1.3-3.2); Glucose 119 mg/dl (74-100); HDL Cholesterol 30 mg/dl (40-60); Total Protein,Serum 7.4 g/dl (6.3-8.2); Triglycerides 169 mg/dl (30-150); VLDL Cholesterol 34 mg/dL (0-40)
[2023-09-12 13:42] LABS: Direct LDL Cholesterol 75.47 mg/dL (100-129)
[2023-09-12 23:33] LABS: Hemoglobin A1C 5.8 % (4.0-6.0)
[2023-09-12 23:45] LABS: Prostate Specific Ag Screen 2.4 ng/ml (0.0-4.0)
[2023-09-12 23:56] LABS: Anion Gap 15.7 mEq/L (5-15); Carbon Dioxide 25 mmol/L (22.0-30.0)
== END ==
PROVIDERS: PCP Nurse Practitioner Family; Visit Provider Nurse Practitioner Family
DX: R73.09 Other abnormal glucose (principal); Z12.5 Encounter for screening for malignant neoplasm of prostate; E78.5 Hyperlipidemia, unspecified; I10 Essential (primary) hypertension; I25.118 Atherosclerotic heart disease of native coronary artery with other forms of angina pectoris; I42.8 Other cardiomyopathies; R10.10 Upper abdominal pain, unspecified
CPT/HCPCS: 80053; 80061; 82272; 82656; 83036; 83993; G0103; G0328

== ENCOUNTER 2023-10-17 02:31 | Emergency (ER) | payer MEDICARE, OTHER, SELFPAY ==
[2023-10-17 02:32] VITALS: BP 140/70; PULSE 86; RESP 20; TEMP 36.9; O2SAT 99; BMI 35.6
--- NOTE | 2023-10-17 02:39 | HMH.EDGENADL ---
Discharge Plan Disposition Patient Disposition: Xfer Short-Term Hosp Condition: Good Prescriptions Prescriptions: No Action pantoprazole 40 mg tablet,delayed release (DR/EC) 40 mg PO DAILY 90 Days Qty: 90 3RF clopidogrel 75 mg tablet 75 mg PO DAILY Qty: 90 3RF furosemide 40 mg tablet 40 mg PO DAILY Qty: 90 3RF lisinopril 10 mg tablet 10 mg PO DAILY Qty: 90 3RF metoprolol succinate 50 mg tablet extended release 24 hr 50 mg PO BID Qty: 180 3RF ranolazine 500 mg tablet extended release 12 hr 500 mg PO BID Qty: 180 3RF Xarelto 20 mg tablet 20 mg PO QPMWITHMEAL Qty: 90 3RF Rx Instructions: must administer with evening meal spironolactone 25 mg tablet 25 mg PO DAILY Qty: 90 3RF atorvastatin 80 mg tablet 80 mg PO HS Qty: 90 3RF Jardiance 10 mg tablet 10 mg PO DAILY Qty: 90 3RF famotidine 20 MG tablet 20 mg PO BID Referrals Follow up/Referrals: Elizabeth Barnard APRN [Primary Care Provider] - See instructions Clinical Impressions Clinical Impression: Epistaxis Stand Alone Forms Stand Alone Forms: Transfer Record - ED Instructions Patient Instructions: DI for Nosebleed Discharge ED Provider: Lolita Torres General Adult HPI General Chief complaint: Epistaxis Stated complaint: nosebleed Time Seen by Provider: 10/17/23 02:43 History of Present Illness HPI narrative: Patient has a PMHx significant for CAD status post PCI x 4, defibrillator placement, CHF, diabetes, hypertension, hyperlipidemia on Plavix and Xarelto who presents to the ED with complaints of nosebleed. Patient notes that he woke up around 1:30 AM and felt his nose running. Patient woke up tonight sound and noted that he had a nosebleed. Patient has bright red bleeding from his right naris. Patient decided come in as he cannot obtain hemostasis at home. Patient denies any history of easy bruising, petechial rash, nosebleeds or gum bleeding. Patient takes Xarelto in the evening, Plavix in the morning Related Data Home Medications Medication Instructions Recorded Confirmed famotidine 20 mg tablet 20 mg PO BID Acid Reflux 11/19/19 10/09/23 Previous Rx's Medication Instructions Recorded pantoprazole 40 mg tablet,delayed 40 mg PO DAILY 90 days #90 tabs 07/02/23 release clopidogrel 75 mg tablet 75 mg PO DAILY #90 tabs 07/24/23 furosemide 40 mg tablet 40 mg PO DAILY Fluid #90 tabs 07/24/23 lisinopril 10 mg tablet 10 mg PO DAILY High Blood Pressure 07/24/23 #90 tabs metoprolol succinate 50 mg 50 mg PO BID High blood pressure 07/24/23 tablet,extended release 24 hr #180 tabs ranolazine 500 mg tablet,extended 500 mg PO BID #180 tabs 07/24/23 release,12 hr rivaroxaban 20 mg tablet (Xarelto) 20 mg PO QPMWITHMEAL Blood 07/24/23 thinner/Afib #90 tabs spironolactone 25 mg tablet 25 mg PO DAILY Fluid #90 tabs 07/24/23 atorvastatin 80 mg tablet 80 mg PO HS Cholesterol #90 tabs 08/29/23 empagliflozin 10 mg tablet 10 mg PO DAILY #90 tabs 08/29/23 (Jardiance) Allergies Allergy/AdvReac Type Severity Reaction Status Date / Time esomeprazole [From NEXIUM] Allergy Mild Verified 10/09/23 13:58 [facility] Disclaimer: The information contained in this section may have been updated after the patient was seen, as this information can be updated by other users. Medical History Abdominal pain Angina pectoris Atrial fibrillation Cardiomyopathy Coronary artery disease Dyspepsia History of cardiac arrest HLD (hyperlipidemia) HTN (hypertension) Myocardial infarction Nausea Surgical History History of back surgery Family History Other Coronary artery disease Social History Smoking Status: Never smoker alcohol intake: never substance use
[2023-10-17 03:01] VITALS: BP 108/64; PULSE 74; O2SAT 95
[2023-10-17 03:30] VITALS: BP 105/62; PULSE 66; O2SAT 95
--- NOTE | 2023-10-17 03:55 | PC.NURSE ---
Dr Torres at bedside, TXA and Helen camp placed in pt right nare without difficulty
[2023-10-17 04:36] VITALS: BP 128/62; PULSE 64; O2SAT 97
[2023-10-17 04:38] LABS: Basophils % 0.3 % (0.1-2.0); Eosinophils # 0.1 K/mm3 (0.0-0.4); Eosinophils % 1.2 % (0.1-12.0); Hematocrit 36.2 % (42.0-52.0); Hemoglobin 12.1 g/dL (14.1-18.0); Lymphocytes # 0.9 K/mm3 (0.7-4.5); Lymphocytes % 9.7 % (10-50); Mean Corpuscular HGB Conc 33.4 g/dL (31.8-35.4); Mean Corpuscular Hemoglobin 30.4 pg (27.0-31.2); Mean Corpuscular Volume 90.9 fl (80-94); Mean Platelet Volume 8.1 fl (7.4-10.4); Monocytes # 0.5 K/mm3 (0.1-1.0); Monocytes % 5.2 % (1.7-9.3); Neutrophils # 7.4 K/mm3 (1.8-7.8); Neutrophils % 83.5 % (37.0-80.0); Platelet Count 262 K/mm3 (142-424); Red Blood Count 3.99 M/mm3 (4.60-6.20); Red Cell Distribution Width 14.3 % (11.5-17.5); White Blood Count 8.9 K/mm3 (4.8-10.8)
--- NOTE | 2023-10-17 04:38 | PC.NURSE ---
Called to room by pt at this time. Pt nose is bleeding again on right side. notified.
[2023-10-17 04:42] LABS: Chloride 103 mmol/L (98-107); Potassium 4.8 mmoL/L (3.5-5.1); Sodium 136 mmol/L (136-145)
[2023-10-17 04:44] LABS: Blood Urea Nitrogen 27 mg/dl (9-20); Creatinine Clearance Estimated 102 mL/min (50-200); Estimated Glomerular Filt Rate 60 ml/min (>60); GFR (African American) 72 ML/MIN (>60)
[2023-10-17 04:45] LABS: Alanine Aminotransferase 30 U/L (12-78); Albumin Level 4.1 g/dl (3.5-5.0); Albumin/Globulin Ratio 1.5 (1.1-1.8); Alkaline Phosphatase 82 U/L (38-126); Anion Gap 11.8 mEq/L (5-15); Aspartate Amino Transferase 33 U/L (17-59); Bilirubin,Total 0.6 mg/dl (0.2-1.3); Calcium 8.3 mg/dl (8.4-10.2); Carbon Dioxide 26 mmol/L (22.0-30.0); Globulin 2.8 g/dL (1.3-3.2); Glucose 126 mg/dl (74-100); Total Protein,Serum 6.9 g/dl (6.3-8.2)
--- NOTE | 2023-10-17 04:56 | PC.NURSE ---
call placed to carlos @ [facility] to check for any on-call avail for ENT local to us. She states Jake does not, neither does Jian, but Pa[facility] 'march'. Waiting on her to check with the warehouse trainer at [facility]
--- NOTE | 2023-10-17 05:01 | PC.NURSE ---
spoke again with carlos at [facility] who states they have no on-call ent after 8 am and thereby can't accept patient for transfer
--- NOTE | 2023-10-17 05:05 | PC.NURSE ---
call placed to [facility]; waiting on ENT on-call to call back
--- NOTE | 2023-10-17 05:12 | PC.NURSE ---
ENT on-call speaking with MD AT THIS TIME.
--- NOTE | 2023-10-17 05:45 | PC.NURSE ---
Anterior/Posterior nasal catheter placed by DR lopez
--- NOTE | 2023-10-17 05:49 | PC.NURSE ---
o/p with at this time.
[2023-10-17 05:57] VITALS: BP 131/69; PULSE 59; O2SAT 97
--- NOTE | 2023-10-17 06:09 | PC.NURSE ---
Called [facility] for transfer at this time.
--- NOTE | 2023-10-17 06:14 | PC.NURSE ---
Report called to ER, Jerald LOVELL. Pt accepted by ENT Dr Kiran
[2023-10-17 06:40] VITALS: BP 154/62; PULSE 88; RESP 18; TEMP 36.8; O2SAT 98
== END 2023-10-17 06:43 | disposition short-term general hospital (02) ==
PROVIDERS: Emergency Provider Emergency Medicine; PCP Nurse Practitioner Family
DX: R04.0 Epistaxis (principal); I11.0 Hypertensive heart disease with heart failure; I50.9 Heart failure, unspecified; E78.5 Hyperlipidemia, unspecified; E11.9 Type 2 diabetes mellitus without complications; I48.91 Unspecified atrial fibrillation; I25.119 Atherosclerotic heart disease of native coronary artery with unspecified angina pectoris; Z79.01 Long term (current) use of anticoagulants; Z79.02 Long term (current) use of antithrombotics/antiplatelets
CPT/HCPCS: 30901; 80053; 85025; 96374; 99285

== ENCOUNTER 2023-11-14 08:14 | Outpatient (CLI) | payer MEDICARE, OTHER, SELFPAY ==
--- NOTE | 2023-11-14 08:15 | FL_ITS ---
FINAL REPORT CLINICAL HISTORY: dysphagia at sternal notch 0.53 min DAP 798.88 FINDINGS: ESOPHAGRAM HISTORY: Abdominal pain, nausea. PROCEDURE: The patient ingested barium. Effervescent crystals were also administered. Spot and overhead films were obtained. FINDINGS: There is mild to moderate esophageal dysmotility with tertiary contractions. There is no hiatal hernia. There is mildgastroesophageal reflux. Peristalsis is normal. Incidental note is made of a duodenal diverticulum. IMPRESSION: . Esophageal dysmotility with mild gastroesophageal reflux. Films reviewed , interpreted and dictated by Dr. Key Transcribed by Pilo Veloz PA-C. Reviewed, Interpreted and Dictated by Josesito Key III, MD Transcribed by KARISSA De Anda Authenticated and [facility]
[2023-11-14] MEDS: E-Z-GASII EFFERVESCENT GRANULES;1PK 1 EACH PO (08:43)
[2023-11-14] MEDS: BARIUM SULFATE(LIQUID E-Z-PAQUE);355ML BOTTLE 355 ML PO (08:43)
[2023-11-14] MEDS: BARIUM SULFATE (E-Z-HD 340GM);135ML BOTTLE 135 ML PO (08:43)
== END 2023-11-14 23:59 ==
LOC: RAD 08:15
PROVIDERS: PCP Nurse Practitioner Family; Visit Provider Nurse Practitioner
DX: R10.9 Unspecified abdominal pain (principal); R13.10 Dysphagia, unspecified; R63.4 Abnormal weight loss
CPT/HCPCS: 74220

== ENCOUNTER 2023-12-04 09:31 | Day surgery (SDC) | payer MEDICARE, OTHER, SELFPAY ==
[2023-11-28 09:37] VITALS: BMI 35.0
[2023-12-04 09:44] VITALS: BP 135/65; PULSE 71; RESP 17; TEMP 36.1; O2SAT 96
--- NOTE | 2023-12-04 10:01 | P.PNANES_ITS ---
[facility] Disclaimer: The information contained in this section may have been updated after the patient was seen, as this information can be updated by other users. Medical History Abdominal pain Angina pectoris Atrial fibrillation Cardiomyopathy Coronary artery disease Dyspepsia History of cardiac arrest HLD (hyperlipidemia) HTN (hypertension) Myocardial infarction Nausea Surgical History History of back surgery Family History Other Coronary artery disease Family history of cancer Family history of diabetes mellitus type II Social History Smoking Status: Never smoker alcohol intake: never substance use type: denies use current occupational status: disabled Travel in the last 8 weeks: Inside the [place] caffeine: Yes [facility] Anesthesia Checklist Patient Identification Patient Identification: Arm Band Structural Data Admitted From: Home Planned Operative Procedure/s: EGD Consent for Planned Operative Procedure(s) Verified: Yes Verified Documents: Surgical Consent and History and Physical NPO Status Verified Time NPO: 00:00 Additional verifications Anesthesia Reactions: No Airway Assessment Mallampati Score:: Class II C-Spine Mobility Assessed: Yes TMJ Mobility Assessed: Yes Dentition: Poor Dentition Neurological Assessment Level of Consciousness: Awake and Alert Anesthesia Plan Anesthesia Risk discussed: Yes Anesthesia Plan: Verified ASA Class: III Anesthesia Type: MAC
[2023-12-04 10:24] VITALS: O2SAT 96
[2023-12-04 10:35] VITALS: BP 108/47; PULSE 63; RESP 18; TEMP 36.5; O2SAT 93
--- NOTE | 2023-12-04 10:35 | HMH.SCOPE ---
Procedure: Date: 12/04/23 Patient Date of :: 1955 Procedure Performed:: EGD & dilation Indications:: Dysphagia Performing Provider:: Anupam Locke MD Referring Provider:: Chen Locek APRN Sedation:: Propofol Procedure:: The gastroscope was gently passed through the incisoral orifice into the oral cavity and under direct visualization the esophagus was intubated. The endoscope was passed down the esophagus, through the stomach, and into the duodenum. Color, texture, mucosa, and anatomy of the esophagus, stomach, and duodenum were carefully examined with the scope. Findings:: Oropharynx: normal Esophagus: normal w/o strictures, empiric dilation therapy performed with 58F bougie dilator EG Junction: intact at 40 cm Cardia: normal Fundus: normal Body: normal Antrum: normal Duodenal bulb: normal Duodenum (second and third portion): normal Impression: Symptomatic dyphagia treated with bougie dilation Recommendations:: Repeat EGD & dilation in about 3 years or so, sooner if clinically indicated. Complications:: None Estimated blood obtained (mL): 0 Colonoscopy Component Colonoscopy Component Was a colonoscopy performed during today's procedure?: No
[2023-12-04 10:45] VITALS: BP 105/65; PULSE 63; RESP 18; O2SAT 95
[2023-12-04 10:55] VITALS: BP 119/69; PULSE 60; RESP 18; O2SAT 95
[2023-12-04 11:05] VITALS: BP 119/81; PULSE 60; RESP 18; O2SAT 95
[2023-12-05 09:04] LABS: POC Glucose,Bedside 112 (70-110)
== END 2023-12-04 11:10 | disposition home or self-care (01) ==
PROVIDERS: PCP Internal Medicine; Visit Provider Internal Medicine Gastroenterology
PROC: 0DJ08ZZ Inspection of Upper Intestinal Tract, Via Natural or Artificial Opening Endoscopic (ICD-10-PCS; CPT 43235; principal; 2023-12-04 10:30)
DX: R13.10 Dysphagia, unspecified (principal)
CPT/HCPCS: 43248; 82962

== ENCOUNTER 2023-12-15 13:16 | Outpatient (CLI) | payer MEDICARE, OTHER, SELFPAY ==
[2023-12-15 13:31] LABS: Basophils % 0.3 % (0.1-2.0); Eosinophils # 0.2 K/mm3 (0.0-0.4); Eosinophils % 2.5 % (0.1-12.0); Hemoglobin 14.1 g/dL (14.1-18.0); Lymphocytes # 1.3 K/mm3 (0.7-4.5); Lymphocytes % 16.5 % (10-50); Mean Corpuscular HGB Conc 33.7 g/dL (31.8-35.4); Mean Corpuscular Hemoglobin 30.3 pg (27.0-31.2); Mean Platelet Volume 8.3 fl (7.4-10.4); Monocytes # 0.7 K/mm3 (0.1-1.0); Monocytes % 8.2 % (1.7-9.3); Neutrophils # 5.8 K/mm3 (1.8-7.8); Neutrophils % 72.6 % (37.0-80.0); Platelet Count 337 K/mm3 (142-424); Red Blood Count 4.66 M/mm3 (4.60-6.20); Red Cell Distribution Width 14.1 % (11.5-17.5); White Blood Count 7.9 K/mm3 (4.8-10.8)
[2023-12-15 14:35] LABS: Alanine Aminotransferase 24 U/L (12-78); Albumin Level 4.6 g/dl (3.5-5.0); Albumin/Globulin Ratio 1.6 (1.1-1.8); Alkaline Phosphatase 119 U/L (38-126); Anion Gap 14.8 mEq/L (5-15); Aspartate Amino Transferase 24 U/L (17-59); Bilirubin,Total 0.6 mg/dl (0.2-1.3); Blood Urea Nitrogen 25 mg/dl (9-20); Calcium 9.4 mg/dl (8.4-10.2); Carbon Dioxide 26 mmol/L (22.0-30.0); Chloride 102 mmol/L (98-107); Chol/HDL Ratio 4.4 (1-3.5); Cholesterol 171 mg/dl (140-200); Estimated Glomerular Filt Rate 55 ml/min (>60); GFR (African American) 66 ML/MIN (>60); Globulin 2.8 g/dL (1.3-3.2); Glucose 117 mg/dl (74-100); HDL Cholesterol 39 mg/dl (40-60); Potassium 4.8 mmoL/L (3.5-5.1); Sodium 138 mmol/L (136-145); Total Protein,Serum 7.4 g/dl (6.3-8.2); Triglycerides 138 mg/dl (30-150); VLDL Cholesterol 28 mg/dL (0-40)
[2023-12-15 14:46] LABS: Direct LDL Cholesterol 86.35 mg/dL (100-129)
[2023-12-15 16:25] LABS: Ferritin 20.1 ng/ml (17.9-464)
== END 2023-12-15 23:59 ==
PROVIDERS: PCP Nurse Practitioner Family; Visit Provider Nurse Practitioner Family
DX: E78.5 Hyperlipidemia, unspecified (principal); I10 Essential (primary) hypertension; D50.9 Iron deficiency anemia, unspecified
CPT/HCPCS: 80053; 80061; 82728; 85025

== ENCOUNTER 2023-12-16 07:12 | Outpatient (CLI) | payer SELFPAY ==
[2023-12-16 14:14] LABS: Hemoglobin A1C 5.8 % (4.0-6.0)
== END 2023-12-16 23:59 ==
PROVIDERS: PCP Nurse Practitioner Family; Visit Provider Nurse Practitioner Family
DX: E11.9 Type 2 diabetes mellitus without complications (principal)
CPT/HCPCS: 83036

== ENCOUNTER 2024-03-15 14:15 | Outpatient (CLI) | payer MEDICARE, OTHER, SELFPAY ==
[2024-03-15 14:27] LABS: Basophils % 0.6 % (0.1-2.0); Eosinophils # 0.2 K/mm3 (0.0-0.4); Eosinophils % 2.6 % (0.1-12.0); Hematocrit 42.9 % (42.0-52.0); Hemoglobin 13.9 g/dL (14.1-18.0); Lymphocytes # 1.2 K/mm3 (0.7-4.5); Mean Corpuscular HGB Conc 32.3 g/dL (31.8-35.4); Mean Corpuscular Hemoglobin 29.7 pg (27.0-31.2); Mean Corpuscular Volume 91.8 fl (80-94); Mean Platelet Volume 8.4 fl (7.4-10.4); Monocytes # 0.5 K/mm3 (0.1-1.0); Neutrophils # 4.7 K/mm3 (1.8-7.8); Neutrophils % 71.7 % (37.0-80.0); Platelet Count 339 K/mm3 (142-424); Red Blood Count 4.67 M/mm3 (4.60-6.20); Red Cell Distribution Width 15.3 % (11.5-17.5); White Blood Count 6.5 K/mm3 (4.8-10.8)
[2024-03-15 15:08] LABS: Alanine Aminotransferase 26 U/L (12-78); Albumin Level 4.5 g/dl (3.5-5.0); Albumin/Globulin Ratio 1.6 (1.1-1.8); Alkaline Phosphatase 116 U/L (38-126); Anion Gap 17.7 mEq/L (5-15); Aspartate Amino Transferase 29 U/L (17-59); Bilirubin,Total 0.9 mg/dl (0.2-1.3); Blood Urea Nitrogen 25 mg/dl (9-20); Calcium 9.6 mg/dl (8.4-10.2); Carbon Dioxide 25 mmol/L (22.0-30.0); Chloride 100 mmol/L (98-107); Estimated Glomerular Filt Rate 60 ml/min (>60); GFR (African American) 72 ML/MIN (>60); Globulin 2.9 g/dL (1.3-3.2); Glucose 114 mg/dl (74-100); Potassium 4.7 mmoL/L (3.5-5.1); Sodium 138 mmol/L (136-145); Total Protein,Serum 7.4 g/dl (6.3-8.2)
[2024-03-15 15:55] LABS: Vitamin B12 215 pg/mL (239-931)
[2024-03-15 16:38] LABS: Ferritin 22.3 ng/ml (17.9-464)
== END 2024-03-15 23:59 | disposition home or self-care (01) ==
LOC: LAB.DROPOF 14:16
PROVIDERS: PCP Nurse Practitioner Family; Visit Provider Nurse Practitioner Family
DX: D50.8 Other iron deficiency anemias (principal); R06.09 Other forms of dyspnea; E78.2 Mixed hyperlipidemia; I10 Essential (primary) hypertension; R73.9 Hyperglycemia, unspecified; Z68.37 Body mass index [BMI] 37.0-37.9, adult
CPT/HCPCS: 80053; 82607; 82728; 83036; 85025

== ENCOUNTER 2024-03-22 13:26 | Emergency (ER) | payer MEDICARE, OTHER, SELFPAY ==
[2024-03-22 13:27] VITALS: BP 132/88; PULSE 88; RESP 17; TEMP 36.5; O2SAT 97; BMI 30.5
--- NOTE | 2024-03-22 13:39 | PC.NURSE ---
Dr. Youngblood at bedside @ [id number] with u/s for fast exam
--- NOTE | 2024-03-22 13:42 | CT_ITS ---
FINAL REPORT TECHNIQUE: thin section axial CT with and without IV contrast supplemented with multiplanar 3-D reconstruction of the head. This study was performed with techniques to keep radiation doses as low as reasonably achievable, (ALARA)individualized dose reduction techniques using automated exposure control or adjustment of mA and/or kV according to the patient's size were employed. NASCET technique utilized for stenosis evaluation. CLINICAL HISTORY: trauma, critical injury suspected FINDINGS: HEAD CT: The ventricles are normal in size. There is no evidence of hemorrhage. No masses are identified. No extra-axial fluid is seen. There is lobular mucoperiosteal thickening in the left maxillary sinus. CTA: The cranial circulation is unremarkable. There is no significant stenosis, aneurysm or occlusion. NECK: RIGHT CAROTID: No significant stenosis is seen of the cervical common or internal carotid artery. There is minimal calcification in the proximal portion of the right external carotid artery. LEFT CAROTID: No significant stenosis seen of the cervical common or internal carotid artery. VERTEBRALS: The vertebrals are patent. No significant stenosis is present. IMPRESSION: No significant stenosis or aneurysm. Reviewed, Interpreted and Dictated by Juan Hackett MD Transcribed by Digna Salvador Authenticated and [facility]
--- NOTE | 2024-03-22 13:42 | CT_ITS ---
FINAL REPORT TECHNIQUE: Axial images were obtained from skull base to the thoracic inlet by computed tomography. Coronal and sagittal reconstruction process performed. This study was performed with techniques to keep radiation doses as low as reasonably achievable (ALARA). Individualized dose reduction techniques using automated exposure control or adjustment of mA and/or kV according to the patient''s size were employed. CLINICAL HISTORY: trauma, critical injury suspected FINDINGS: There is no acute fracture or subluxation. There are moderate hypertrophic changes of degenerative disc disease at C5-6 and C6-7. The facets are normally aligned. The soft tissues are unremarkable. Limited images of the lung apices are unremarkable. C2-3: Unremarkable. C3-4: Prominent posterior osteophyte in the left paracentral region. There is moderate left central canal stenosis. C4-5: Unremarkable. C5-6: Moderate endplate hypertrophy, right greater than left with moderate to high-grade right neuroforaminal narrowing. C6-7: Large posterior osteophyte with moderate canal stenosis and high-grade bilateral neuroforaminal narrowing. C7-T1: Unremarkable. IMPRESSION: Large posterior osteophyte at C6-7 with high-grade bilateral neuroforaminal narrowing and moderate canal stenosis. No acute bony abnormality. Reviewed, Interpreted and Dictated by Juan Hackett MD Transcribed by Susy Martin Authenticated and [facility]
--- NOTE | 2024-03-22 13:42 | CT_ITS ---
FINAL REPORT TECHNIQUE: Axial CT images were performed through the head. Coronal reformatted images were submitted. This study was performed with techniques to keep radiation doses as low as reasonably achievable (ALARA). Individualized dose reduction techniques using automated exposure control or adjustment of mA and/or kV according to the patient's size were employed. CLINICAL HISTORY: trauma, critical injury suspected FINDINGS: There is moderate atrophy. The ventricles are normal in size. There is no evidence of hemorrhage. There is no mass or edema identified. There is no abnormal extra-axial fluid seen. The sinuses are well aerated. Lobular mucoperiosteal thickening is seen in the left maxillary sinus consistent with chronic sinusitis. IMPRESSION: No acute intracranial process. Reviewed, Interpreted and Dictated by Juan Hackett MD Transcribed by Susy Martin Authenticated and . [facility]
--- NOTE | 2024-03-22 13:42 | CT_ITS ---
FINAL REPORT TECHNIQUE: The patient was injected with IV contrast. Axial images were obtained through the chest in a PE protocol. 3-D reconstruction images were also performed. Individualized dose reduction techniques using automated exposure control or adjustment of the MA and/or KV according to patient's size were employed. CLINICAL HISTORY: trauma, critical injury suspected FINDINGS: There is a left upper anterior chest wall pacemaker with streak artifact. Mediastinal vasculature is adequately opacified. No pulmonary artery filling defects are identified to suggest PE. There is a low-attenuation in the right paratracheal region which appears to represent superior extension of a pericardial recess. No mass or stranding is seen. There is no aortic dissection. There is no axillary adenopathy. There is no hilar or mediastinal adenopathy. The heart size is normal. There is no pericardial or pleural effusion. There is bibasilar scarring or atelectasis. There is no pneumothorax. No suspicious infiltrate or nodule is identified. Osseous structures are unremarkable. IMPRESSION: No pulmonary embolus or dissection. No acute process. Reviewed, Interpreted and Dictated by Juan Hackett MD Transcribed by Susy Martin Authenticated and [facility]
--- NOTE | 2024-03-22 13:42 | CT_ITS ---
FINAL REPORT TECHNIQUE: Pre-and postcontrast images of the abdomen and pelvis were performed by computed tomography. Extensive 3-D reconstruction images were performed. A CTA was performed. This study was performed with techniques to keep radiation doses as low as reasonably achievable (ALARA). Individualized dose reduction techniques using automated exposure control or adjustment of mA and/or kV according to the patient''s size were employed. CLINICAL HISTORY: trauma, critical injury suspected FINDINGS: ABDOMEN AND PELVIS: Precontrast images demonstrate no evidence of nephrolithiasis. No adrenal masses are identified. The liver is diffusely fatty infiltrated. There is cholelithiasis. In 8 cm left renal cyst is noted. The spleen and pancreas are unremarkable. There is mild to moderate sigmoid diverticulosis. Urinary bladder is unremarkable. There is no acute bony and abnormality. Moderate anterior osteophyte formation is seen of the mid and lower thoracic spine. CTA: The abdominal aorta is proper caliber. The SMA, celiac axis, and RACHEL are patent. There is no significant stenosis or calcification. There is moderate focal stenosis at the origin of the right renal artery seen on image 44 of series 45. No dissection is seen. IMPRESSION: No aneurysm or dissection. Cholelithiasis. No acute process. Reviewed, Interpreted and Dictated by Juan Hackett MD Transcribed by Susy Martin Authenticated and [facility]
--- NOTE | 2024-03-22 13:42 | CT_ITS ---
FINAL REPORT TECHNIQUE: Axial images were obtained of the thoracic spine by computed tomography. Coronal and sagittal reconstruction process performed. This study was performed with techniques to keep radiation doses as low as reasonably achievable (ALARA). Individualized dose reduction techniques using automated exposure control or adjustment of mA and/or kV according to the patient's size were employed. CLINICAL HISTORY: trauma, critical injury suspected FINDINGS: There is calcification of the anterior longitudinal ligament. Thoracic vertebrae show normal height. Disc spaces are well-preserved. There is no malalignment. The facets are properly aligned. There is streak artifact from pacemaker leads. Note is made of a large left renal cyst measuring 8.0 x 7.0 cm. IMPRESSION: No acute fracture. Reviewed, Interpreted and Dictated by Juan Hackett MD Transcribed by Digna Salvador Authenticated and [facility]
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
[2024-03-22 14:08] LABS: Basophils # 0.1 K/mm3 (0-0.2); Basophils % 0.5 % (0.1-2.0); Eosinophils # 0.1 K/mm3 (0.0-0.4); Eosinophils % 1.2 % (0.1-12.0); Hematocrit 43.1 % (42.0-52.0); Lymphocytes # 1.2 K/mm3 (0.7-4.5); Mean Corpuscular HGB Conc 32.4 g/dL (31.8-35.4); Mean Corpuscular Hemoglobin 29.8 pg (27.0-31.2); Mean Corpuscular Volume 92.1 fl (80-94); Mean Platelet Volume 8.2 fl (7.4-10.4); Monocytes # 0.5 K/mm3 (0.1-1.0); Monocytes % 5.5 % (1.7-9.3); Neutrophils # 6.6 K/mm3 (1.8-7.8); Neutrophils % 78.7 % (37.0-80.0); Platelet Count 347 K/mm3 (142-424); Red Blood Count 4.68 M/mm3 (4.60-6.20); Red Cell Distribution Width 15.1 % (11.5-17.5); White Blood Count 8.3 K/mm3 (4.8-10.8)
[2024-03-22] MEDS: IOPAMIDOL-370 (76%);100ML BOTTLE 200 ML IV (14:26)
[2024-03-22] MEDS: SODIUM CHLORIDE 0.9% 10ML SYR (RAD ONLY) 10 ML IV (14:26)
[2024-03-22] MEDS: 0.9 % SODIUM CHLORIDE 50 ML VIAL 100 ML IV (14:27)
[2024-03-22] MEDS: RINGERS SOLUTION,LACTATED 500 ML 999 ML IV (14:42)
[2024-03-22 14:50] VITALS: BP 133/71; PULSE 65; O2SAT 96
[2024-03-22 15:13] LABS: Alanine Aminotransferase 23 U/L (12-78); Albumin Level 4.1 g/dl (3.5-5.0); Albumin/Globulin Ratio 1.4 (1.1-1.8); Alkaline Phosphatase 113 U/L (38-126); Anion Gap 15.4 mEq/L (5-15); Aspartate Amino Transferase 28 U/L (17-59); Bilirubin,Total 0.9 mg/dl (0.2-1.3); Blood Urea Nitrogen 28 mg/dl (9-20); Calcium 9.5 mg/dl (8.4-10.2); Carbon Dioxide 27 mmol/L (22.0-30.0); Chloride 98 mmol/L (98-107); Creatinine Clearance Estimated 71 mL/min (50-200); Estimated Glomerular Filt Rate 50 ml/min (>60); GFR (African American) 61 ML/MIN (>60); Globulin 2.9 g/dL (1.3-3.2); Glucose 109 mg/dl (74-100); Potassium 4.4 mmoL/L (3.5-5.1); Sodium 136 mmol/L (136-145)
[2024-03-22 15:13] LABS: Activated Partial Thrombo Time 30.9 seconds (22.8-30.6)
[2024-03-22 15:25] LABS: Microscopic, Urine URINE MICROSCOPIC (MICROSCOPIC)
[2024-03-22 15:38] LABS: Appearance,Urine CLEAR (Clear); Bilirubin,Urine Negative (Negative); Blood, Urine 2+ (Negative); Color,Urine YELLOW (Yellow); Glucose,Urine (UA) 2+ (Negative); Ketones,Urine Negative (Negative); Leukocyte Esterase,Urine Negative (Negative); Nitrate,Urine Negative (Negative); Protein,Urine Negative (Negative); Specific Gravity, Urine <= 1.005 (1.005-1.030); Urobilinogen,Urine 0.2 EU/dl (0.2)
[2024-03-22 16:11] LABS: Lipase 61 U/L (23-300)
[2024-03-22 17:36] VITALS: BP 121/63; PULSE 60; RESP 13; TEMP 36.7
== END 2024-03-22 17:37 | disposition home or self-care (01) ==
PROVIDERS: Student in an Organized Health Care Education/Training Program; Emergency Provider Emergency Medicine; PCP Nurse Practitioner Family
DX: M79.661 Pain in right lower leg (principal); S80.11XA Contusion of right lower leg, initial encounter; M54.9 Dorsalgia, unspecified; R31.29 Other microscopic hematuria; Z86.79 Personal history of other diseases of the circulatory system; Z79.01 Long term (current) use of anticoagulants; V84.5XXA Driver of special agricultural vehicle injured in nontraffic accident, initial encounter; Z95.810 Presence of automatic (implantable) cardiac defibrillator
CPT/HCPCS: 70450; 70496; 70498; 71275; 72125; 72128; 72131; 73590; 73610; 74174; 80053; 81001; 83690; 85025; 85730; Q9967

== ENCOUNTER 2024-06-15 14:55 | Outpatient (CLI) | payer MEDICARE, OTHER, SELFPAY ==
[2024-06-15 13:19] LABS: Basophils % 0.6 % (0.1-2.0); Eosinophils # 0.2 K/mm3 (0.0-0.4); Eosinophils % 2.4 % (0.1-12.0); Hematocrit 45.4 % (42.0-52.0); Hemoglobin 14.4 g/dL (14.1-18.0); Lymphocytes % 15.7 % (10-50); Mean Corpuscular HGB Conc 31.8 g/dL (31.8-35.4); Mean Corpuscular Hemoglobin 29.4 pg (27.0-31.2); Mean Corpuscular Volume 92.6 fl (80-94); Mean Platelet Volume 7.9 fl (7.4-10.4); Monocytes # 0.4 K/mm3 (0.1-1.0); Monocytes % 6.9 % (1.7-9.3); Neutrophils # 4.7 K/mm3 (1.8-7.8); Neutrophils % 74.6 % (37.0-80.0); Platelet Count 344 K/mm3 (142-424); Red Blood Count 4.91 M/mm3 (4.60-6.20); Red Cell Distribution Width 14.6 % (11.5-17.5); White Blood Count 6.3 K/mm3 (4.8-10.8)
[2024-06-15 13:40] LABS: Alanine Aminotransferase 26 U/L (12-78); Albumin Level 4.5 g/dl (3.5-5.0); Albumin/Globulin Ratio 1.5 (1.1-1.8); Alkaline Phosphatase 109 U/L (38-126); Anion Gap 14.9 mEq/L (5-15); Aspartate Amino Transferase 27 U/L (17-59); Bilirubin,Total 0.9 mg/dl (0.2-1.3); Blood Urea Nitrogen 27 mg/dl (9-20); Calcium 9.4 mg/dl (8.4-10.2); Carbon Dioxide 24 mmol/L (22.0-30.0); Chloride 104 mmol/L (98-107); Estimated Glomerular Filt Rate 55 ml/min (>60); GFR (African American) 66 ML/MIN (>60); Glucose 129 mg/dl (74-100); Potassium 4.9 mmoL/L (3.5-5.1); Sodium 138 mmol/L (136-145); Total Protein,Serum 7.5 g/dl (6.3-8.2)
[2024-06-15 14:32] LABS: Vitamin B12 378 pg/mL (239-931)
== END 2024-06-15 23:59 | disposition home or self-care (01) ==
LOC: LAB.DROPOF 14:55
PROVIDERS: PCP Internal Medicine; Visit Provider Nurse Practitioner Family
DX: E53.8 Deficiency of other specified B group vitamins (principal); I48.91 Unspecified atrial fibrillation; R73.09 Other abnormal glucose; I10 Essential (primary) hypertension; E78.2 Mixed hyperlipidemia; Z68.39 Body mass index [BMI] 39.0-39.9, adult
CPT/HCPCS: 80053; 82607; 83036; 85025; 86340

== ENCOUNTER 2024-09-15 10:39 | Outpatient (CLI) | payer MEDICARE, OTHER, SELFPAY ==
[2024-09-15 14:10] LABS: Basophils % 0.6 % (0.1-2.0); Eosinophils # 0.2 K/mm3 (0.0-0.4); Eosinophils % 2.7 % (0.1-12.0); Hematocrit 41.2 % (42.0-52.0); Hemoglobin 13.6 g/dL (14.1-18.0); Lymphocytes % 17.4 % (10-50); Mean Corpuscular HGB Conc 33.1 g/dL (31.8-35.4); Mean Corpuscular Hemoglobin 30.3 pg (27.0-31.2); Mean Corpuscular Volume 91.5 fl (80-94); Monocytes # 0.5 K/mm3 (0.1-1.0); Monocytes % 9.2 % (1.7-9.3); Neutrophils # 4.1 K/mm3 (1.8-7.8); Neutrophils % 70.2 % (37.0-80.0); Platelet Count 314 K/mm3 (142-424); White Blood Count 5.9 K/mm3 (4.8-10.8)
[2024-09-15 14:25] LABS: Alanine Aminotransferase 22 U/L (12-78); Albumin Level 4.4 g/dl (3.5-5.0); Albumin/Globulin Ratio 1.8 (1.1-1.8); Alkaline Phosphatase 100 U/L (38-126); Anion Gap 15.1 mEq/L (5-15); Aspartate Amino Transferase 26 U/L (17-59); Bilirubin,Total 0.8 mg/dl (0.2-1.3); Blood Urea Nitrogen 32 mg/dl (9-20); Calcium 8.9 mg/dl (8.4-10.2); Carbon Dioxide 25 mmol/L (22.0-30.0); Chloride 103 mmol/L (98-107); Chol/HDL Ratio 3.3 (1-3.5); Cholesterol 126 mg/dl (140-200); Estimated Glomerular Filt Rate 54 ml/min (>60); GFR (African American) 66 ML/MIN (>60); Globulin 2.4 g/dL (1.3-3.2); Glucose 98 mg/dl (74-100); HDL Cholesterol 38 mg/dl (40-60); Potassium 5.1 mmoL/L (3.5-5.1); Sodium 138 mmol/L (136-145); Total Protein,Serum 6.8 g/dl (6.3-8.2); Triglycerides 188 mg/dl (30-150); VLDL Cholesterol 38 mg/dL (0-40)
[2024-09-15 14:36] LABS: Direct LDL Cholesterol 68.22 mg/dL (100-129)
[2024-09-15 14:56] LABS: Thyroid Stimulating Hormone 3.55 uIU/mL (0.465-4.68)
[2024-09-15 15:00] LABS: Ferritin 25.9 ng/ml (17.9-464)
[2024-09-15 15:15] LABS: Vitamin B12 684 pg/mL (239-931)
== END 2024-09-15 23:59 | disposition home or self-care (01) ==
LOC: LAB.DROPOF 09-16 12:59
PROVIDERS: PCP Nurse Practitioner Family; Visit Provider Nurse Practitioner Family
DX: Z13.1 Encounter for screening for diabetes mellitus (principal); I10 Essential (primary) hypertension; E78.2 Mixed hyperlipidemia; D50.8 Other iron deficiency anemias; E53.8 Deficiency of other specified B group vitamins
CPT/HCPCS: 36415; 80053; 80061; 82607; 82728; 83036; 84443; 85025

== ENCOUNTER 2024-12-15 11:25 | Outpatient (CLI) | payer MEDICARE, OTHER, SELFPAY ==
[2024-12-15 13:38] LABS: Basophils % 0.3 % (0.1-2.0); Eosinophils # 0.2 K/mm3 (0.0-0.4); Eosinophils % 1.9 % (0.1-12.0); Hematocrit 42.6 % (42.0-52.0); Hemoglobin 13.6 g/dL (14.1-18.0); Lymphocytes % 11.7 % (10-50); Mean Corpuscular HGB Conc 31.9 g/dL (31.8-35.4); Mean Corpuscular Volume 90.8 fl (80-94); Mean Platelet Volume 9.2 fl (7.4-10.4); Monocytes # 0.7 K/mm3 (0.1-1.0); Monocytes % 8.1 % (1.7-9.3); Neutrophils # 6.6 K/mm3 (1.8-7.8); Neutrophils % 76.8 % (37.0-80.0); Platelet Count 360 K/mm3 (142-424); Red Blood Count 4.69 M/mm3 (4.60-6.20); Red Cell Distribution Width 13.3 % (11.5-17.5); White Blood Count 8.6 K/mm3 (4.8-10.8)
[2024-12-15 14:14] LABS: Albumin Level 4.7 g/dl (3.5-5.0); Chloride 103 mmol/L (98-107); Potassium 5.6 mmoL/L (3.5-5.1); Sodium 139 mmol/L (136-145)
[2024-12-15 14:17] LABS: Alanine Aminotransferase 31 U/L (12-78); Albumin/Globulin Ratio 1.8 (1.1-1.8); Alkaline Phosphatase 116 U/L (38-126); Anion Gap 14.6 mEq/L (5-15); Aspartate Amino Transferase 32 U/L (17-59); Bilirubin,Total 0.8 mg/dl (0.2-1.3); Blood Urea Nitrogen 23 mg/dl (9-20); Carbon Dioxide 27 mmol/L (22.0-30.0); Cholesterol 144 mg/dl (140-200); Estimated Glomerular Filt Rate 66 ml/min (>60); GFR (African American) 80 ML/MIN (>60); Globulin 2.6 g/dL (1.3-3.2); Total Protein,Serum 7.3 g/dl (6.3-8.2); Triglycerides 239 mg/dl (30-150); VLDL Cholesterol 48 mg/dL (0-40)
[2024-12-15 14:18] LABS: Calcium 9.3 mg/dl (8.4-10.2); Chol/HDL Ratio 5.1 (1-3.5); Glucose 124 mg/dl (74-100); HDL Cholesterol 28 mg/dl (40-60)
[2024-12-15 14:29] LABS: Direct LDL Cholesterol 73.65 mg/dL (100-129)
[2024-12-15 14:52] LABS: Ferritin 44.3 ng/ml (17.9-464)
[2024-12-15 15:10] LABS: Hemoglobin A1C 6.1 % (4.0-6.0)
[2024-12-15 17:22] LABS: Vitamin B12 913 pg/mL (239-931)
== END 2024-12-15 23:59 | disposition home or self-care (01) ==
LOC: LAB.DROPOF 12-16 13:11
PROVIDERS: PCP Nurse Practitioner Family; Visit Provider Nurse Practitioner Family
DX: Z13.1 Encounter for screening for diabetes mellitus (principal); E78.5 Hyperlipidemia, unspecified; I10 Essential (primary) hypertension; D50.9 Iron deficiency anemia, unspecified; E53.8 Deficiency of other specified B group vitamins
CPT/HCPCS: 80053; 80061; 82607; 82728; 83036; 84443; 85025

== ENCOUNTER 2025-03-14 11:56 | Outpatient (CLI) | payer MEDICARE, OTHER, SELFPAY ==
--- OUTSIDE RECORDS SUMMARY | 2025-03-14 12:00 | XMS_ITS | Continuity of Care Document ---
Author Name [facility] Organization [facility] Care Team Providers Care Condenser Tester Name Role Phone [facility] Unavailable Unavailable Medications Combined list of outpatient medications from Department of Defense and Veterans Affairs facilities.Medications provided include 1) outpatient medications from the last 15 months, and 2) patient-reported medications. Medication Details Route Status Patient Instructions Prescription Expires Prescription Number Last Dispense Date Ordering Provider Order Date Order Qty Source ERYTHROMYCI N (ERYTHROMYC IN BASE), 5MG/G, OINT.(GM), OPHTHALMIC, BAUSCH &LOMB RX, 3.5 g TUBE Active [id number] 2023 3.5 Pharmac y Data Transac tion Service Facilit y METHOCARBAM OL (METHOCARBA MOL), 500 MG, TABLET, ORAL, CAMBER PHARMACE, 100 ea. BOTTLE Active [id number] 2023 12 Pharmac y Data Transac tion Service Facilit y METOPROLOL SUCCINATE (METOPROLOL SUCCINATE), 50 MG, TAB ER 24H, ORAL, 'S LAB, 100 ea. BOTTLE Active [id number] 4 2023 180 Pharmac y Data Transac tion Service Facilit y METOPROLOL SUCCINATE (METOPROLOL SUCCINATE), 50 MG, TAB ER 24H, ORAL, 'S LAB, 500 ea. BOTTLE Cancele d [id number] : 2023 0 Pharmac y Data Transac tion Service Facilit y METOPROLOL SUCCINATE (METOPROLOL SUCCINATE), 50 MG, TAB ER 24H, ORAL, 'S LAB, 500 ea. BOTTLE Active [id number] 4 2023 180 Pharmac y Data Transac tion Service Facilit y RANOLAZINE ER (ranolazine ), 500 MG, TAB ER 12H, ORAL, Gritness PHARMA, 60 ea. BOTTLE Cancele d [id number] : 2023 0 Pharmac y Data Transac tion Service Facilit y SPIRONOLACT ONE (SPIRONOLAC TONE), 25 MG, TABLET, ORAL, AMNEAL PHARMACE, 500 ea. BOTTLE Cancele d [id number] : 2023 0 Pharmac y Data Transac tion Service Facilit y Social History Combined list of available smoking, tobacco, and other social history from Department of Defense and Veterans Affairs facilities. Social History Type Response Date Comment [facility] e This section is an empty social history section. DoD
[2025-03-14 12:58] LABS: Basophils % 0.7 % (0.1-2.0); Eosinophils # 0.2 Kmm3 (0.0-0.4); Eosinophils % 3.4 % (0.1-12.0); Hematocrit 41.1 % (42.0-52.0); Hemoglobin 13.5 g/dL (14.1-18.0); Immature Granulocytes # 0.05 10^3uL; Immature Granulocytes % 0.8 %; Lymphocytes # 1.1 K/mm3 (0.7-4.5); Lymphocytes % 18.2 % (10-50); Mean Corpuscular HGB Conc 32.8 g/dL (31.8-35.4); Mean Corpuscular Hemoglobin 29.7 pg (27.0-31.2); Mean Corpuscular Volume 90.5 fl (80-94); Mean Platelet Volume 9.4 fl (7.4-10.4); Monocytes # 0.5 K/mm3 (0.1-1.0); Monocytes % 8.9 % (1.7-9.3); Nucleated Red Blood Cells # 0 10^3/uL; Nucleated Red Blood Cells % 0 %; Platelet Count 287 K/mm3 (142-424); Red Blood Count 4.54 M/mm3 (4.60-6.20); Red Cell Distribution Width 13.9 % (11.5-17.5); Red Cell Distribution Width-SD 45.7 fL; White Blood Count 5.9 K/mm3 (4.8-10.8)
[2025-03-14 13:55] LABS: Albumin Level 4.4 g/dl (3.5-5.0); Chloride 106 mmol/L (98-107); Potassium 4.8 mmoL/L (3.5-5.1); Sodium 136 mmol/L (136-145)
[2025-03-14 13:58] LABS: Alanine Aminotransferase 28 U/L (12-78); Albumin/Globulin Ratio 1.6 (1.1-1.8); Alkaline Phosphatase 100 U/L (38-126); Anion Gap 13.8 mEq/L (5-15); Aspartate Amino Transferase 27 U/L (17-59); Bilirubin,Total 0.6 mg/dl (0.2-1.3); Blood Urea Nitrogen 22 mg/dl (9-20); Calcium 9.6 mg/dl (8.4-10.2); Carbon Dioxide 21 mmol/L (22.0-30.0); Cholesterol 146 mg/dl (140-200); Estimated Glomerular Filt Rate 66 ml/min (>60); GFR (African American) 80 ML/MIN (>60); Globulin 2.7 g/dL (1.3-3.2); Glucose 128 mg/dl (74-100); Total Protein,Serum 7.1 g/dl (6.3-8.2); Triglycerides 185 mg/dl (30-150); VLDL Cholesterol 37 mg/dL (0-40)
[2025-03-14 13:59] LABS: Chol/HDL Ratio 3.9 (1-3.5); HDL Cholesterol 37 mg/dl (40-60)
[2025-03-14 14:09] LABS: Direct LDL Cholesterol 75.48 mg/dL (100-129)
[2025-03-14 14:29] LABS: Thyroid Stimulating Hormone 1.85 uIU/mL (0.465-4.68)
[2025-03-14 14:33] LABS: Ferritin 19.7 ng/ml (17.9-464)
[2025-03-14 15:48] LABS: Hemoglobin A1C 5.9 % (4.0-6.0)
[2025-03-14 17:07] LABS: Vitamin B12 > 1000 pg/mL (239-931)
== END 2025-03-14 23:59 | disposition home or self-care (01) ==
LOC: LAB 11:58
PROVIDERS: PCP Nurse Practitioner Family; Visit Provider Nurse Practitioner Family
DX: D50.8 Other iron deficiency anemias (principal); I10 Essential (primary) hypertension; E78.2 Mixed hyperlipidemia; R73.9 Hyperglycemia, unspecified; E53.8 Deficiency of other specified B group vitamins
CPT/HCPCS: 36415; 80053; 80061; 82607; 82728; 83036; 83735; 84443; 85025

== ENCOUNTER 2025-04-26 07:46 | Outpatient (CLI) | payer MEDICARE, OTHER, SELFPAY ==
--- OUTSIDE RECORDS SUMMARY | 2025-04-26 07:47 | XMS_ITS | Continuity of Care Document ---
Author Name [facility] Organization [facility] Care Team Providers Care Complaint Inspector Name Role Phone [facility] Unavailable Unavailable Medications Combined list of outpatient [...] BAUSCH &LOMB RX, 3.5 g TUBE Active [id number] 2023 3.5 Pharmac y Data Transac tion Service Facilit y METHOCARBAM OL (METHOCARBA MOL), 500 MG, TABLET, ORAL, CAMBER PHARMACE, 100 ea. BOTTLE Active [id number] 2023 12 Pharmac y Data Transac tion Service Facilit y METOPROLOL SUCCINATE (METOPROLOL SUCCINATE), 50 MG, TAB ER 24H, ORAL, 'S LAB, 500 ea. BOTTLE Cancele d [id number] : 2023 0 Pharmac y Data Transac tion Service Facilit y SPIRONOLACT ONE (SPIRONOLAC TONE), 25 MG, TABLET, ORAL, AMNEAL PHARMACE, 500 ea. BOTTLE Cancele d [id number] : 2023 0 Pharmac y Data Transac tion Service Facilit y Social History Combined list of available smoking, tobacco, and other social history from Department of Defense and Veterans Affairs facilities. Social History Type Response Date Comment Sourc e This section is an empty social history section. [facility]D
--- OUTSIDE RECORDS SUMMARY | 2025-04-26 07:48 | XMS_ITS | Clinical Summary ---
Author Organization Healthcare Address [address] [place] [address] Care Team Providers Care Oil And Gas Specialist Name Role Phone BarnardElizabeth salvador NIKOS Primary Care Provider [phone]- [phone] Allergies Active Allergy Reactions Criticality Noted Date Comments Esomeprazole Diarrhea Low 10/17/2023 Medications sodium chloride ([place]) 0.65 % nasal spray Administer 2 sprays into each nostril if needed for congestion. Use two times daily for two weeks after completing 2 days of Afrin. 30 mL 3 Active aspirin 81 MG EC tablet Take 1 tablet (81 mg) by mouth 1 (one) time each day. 8 Active atorvastatin (Lipitor) 80 MG tablet TAKE 1 TABLET BY MOUTH EVERY NIGHT AT BEDTIME FOR CHOLESTEROL Active furosemide (Lasix) 40 MG tablet TAKE 1 TABLET BY MOUTH DAILY FOR FLUID RETENTION Active lisinopril 10 MG tablet Take 1 tablet (10 mg) by mouth 1 (one) time each day. Active metoprolol succinate XL (Toprol-XL) 50 MG 24 hr tablet TAKE 1 TABLET BY MOUTH TWICE DAILY FOR HIGH BLOOD PRESSURE Active empagliflozin (Jardiance) 10 MG 1 tablet (10 mg). 3 Active pantoprazole (Protonix) 40 MG EC tablet Take 1 tablet (40 mg) by mouth 1 (one) time each day. 3 Active clopidogrel (Plavix) 75 MG tablet Take 1 tablet (75 mg) by mouth 1 (one) time each day. Active rivaroxaban (Xarelto) 20 MG tablet 1 tablet (20 mg). 3 Active Active Problems Problem Noted Date Diagnosed Date Obesity (BMI 35.0-39.9 without comorbidity) 10/04 Severe obesity (BMI 35.0-39.9) with comorbidity 10/22/2023 Family History Medical History Relation Name Comments Other cancer Father Conversions - Other Mother Hip join t replacement status Relation Name Status Comments Father Mother Social History Tobacco Use Types Packs/Day Years Used Date Smoking Tobacco: Never Smokeless Tobacco: Never Tobacco Cessation:Counseling Given: Not Answered Alcohol Use Standard Drinks/Week Comments Not Currently 0 (1 standard drink = 0.6 oz pur e alcohol) none since 2016 Sex and Gender Information Value Date Recorded Sex Assigned at Male 10/17/2023 8:26 AM EST Legal Sex Male 6:54 PM EDT Gender Identity Male 10/17/2023 8:26 AM EST Sexual Orientation Not on file Last Filed Vital Signs Vital Sign Reading Time Taken Comments Blood Pressure 122/76 10/22/2023 12:47 PM EST Pulse 67 10/22/2023 12:47 PM EST Temperature 37.1 C (98.7 F) 10/17/2023 11:40 AM EST Respiratory Rate 16 10/17/2023 11:40 AM EST Oxygen Saturation 94% 10/17/2023 11:40 AM EST Inhaled Oxygen Concentration - - Weight 126 kg (278 lb) 12/01/2023 11:14 AM EST Height 188 cm (6' 2 ) 12/01/2023 11:14 AM EST Body Mass Index 35.69 12/01/2023 11:14 AM EST Plan of Treatment Health Maintenance Due Date Last Done Comments [facility]-Depression Screening 1955 [facility]icare Annual Wellness (AWV) 1955 [facility]-Infant/Child/Adol SDOH Screenings 1955 [facility]- SDOH Screenings 1971 [facility]-Adult SDOH Screenings 1971 [facility]-DTaP,Tdap,and Td Vaccine s (1 - Tdap) 01/05/1997 01/04/1997 CT Colonography 1998 Colonoscopy 1998 FIT-DNA 1998 FIT 1998 FOBT 1998 Sigmoidoscopy 1998 [facility]-Colorectal Cancer Screening 1998 [facility]-Pneumococcal Vaccine: 50 + Years (1 of 1 - PCV) 2003 [facility]-Zoster Vaccines (1 of 2) 2003 [id number] Vaccine ( season) 2024 01/31/2021, 01/03/2021 [facility]-Influenza Vaccine ([place] Ended) 2025 [facility]-RSV Vaccine: 60+ Years o r (1 - 1-dose 75+ series) 2028 [facility]-Hepatitis C Screening Completed 10/17/2023 [facility]-Obesity Intervention Completed 024, 10/22/2023 HPV Vaccines Aged Out No longer eligi ble based on patient's age to complete this topic [facility]-HIB Vaccines Aged Out No longer e ligible based on patient's age to complete this topic [facility]-Hepatitis A Vaccines Aged Out No longer eligible based on patient's age to complete this topic [facility]-IPV Vaccines Aged Out No longer e ligible based on patient's age to complete this topic [facility]-Rotavirus Vaccines Aged Out No lo nger eligible based on patient's age to complete this topic Procedures Procedure Name Priority Date/Time Associated Diagnosis Comments HEPATITIS C ANTIBODY - ED W/REFLEX TO HCV QUANT PCR STAT 10/17/2023 9:17 AM EST from Last 3 Months or Most Recently Relevant to Health Maintenance Results * Hepatitis C Antibody - ED (10/17/2023 9:17 AM EST) Hepatitis C Antibody Negative Negative 10/17/2023 10:14 AM EST [facility] Blood Venous blood specimen / Unknown Venipuncture / Unknown 10/17/2023 9:17 AM EST 10/17/2023 9:22 AM EST River Cartagena MD LAB BLOOD ORDERABLES Final Result [facility] [address] [place] [address] from Last 3 Months or Most Recently Relevant to Health Maintenance Insurance MEDICARE [facility] Care Teams Oil And Gas Specialist Relationship Specialty Start Date End Date Elizabeth Barnard APRN [address] [place] [address] PCP - General 10/17/23
--- NOTE | 2025-04-26 08:00 | CA_ITS ---
APPROVED REPORT EXAM: Comprehensive 2D, Doppler, and color-flow Echocardiogram Director Of Food And Beverage Services: Kary Saul CRT Ht: 6 ft 0 in Wt: 302lbs BSA: 2.54 BP: 127/73 mmHg Indications: Shortness of Breath, Peripheral Edema, AICD, old IN, stents Echo Enhancing Agent Indication: Endocardial border delineation Agent(s) / Amount(s) Used: Definity 2 cc Comments: Definity given 2D Dimensions LA Volume 56.10 mL LA Volume Index 21.60 mL/m2 (M/F) 16-34 M-Mode Dimensions RVDd 3.81 cm (0.9-2.6) LA Diam 3.41 cm (1.9-4.0) LVDd 4.77 cm (3.5-5.7) LVDs 3.57 cm (3.5-5.7) IVSd 2.02 cm (0.6-1.1) PWd 1.02 cm (0.6-1.1) EF (Teich) 49.70% FS 25.20% EDV (Teich) 106.00 mL TAPSE 1.80 (<1.7) ESV (Teich) 53.30 mL LV Diastology MED A' 9.50 cm/s LAT A' 11.30 cm/s Aortic Valve AI PHT 546.00 ms AO Peak GR. 8.20 mmHg Pulmonary Valve PV Peak Velocity 168.0 (50-150 cm/s) Tricuspid Valve TR P. Velocity 253.00 cm/s RAP Estimate 10.00 mmHg RVSP 35.50 mmHg Left Ventricle The left ventricle is normal size. Left ventricular systolic function is mildly decreased. There is increased LV wall thickness. There is mild global hypokinesis present. There is moderate hypokinesis of the septal and inferoseptal LV daugherty. The septum is asynchronous. Grade 1 diastolic dysfunction is present. No left ventricle thrombus noted on this study. LVEF is 45%. Right Ventricle The right ventricle is normal size. The right ventricular systolic function is normal. There is a device lead present in the right ventricle. Atria The left atrium size is normal. The right atrium size is normal. There is no Doppler evidence of interatrial shunt. Aortic Valve The aortic valve is mildly thickened. Mild aortic regurgitation. There is no aortic valvular stenosis. Mitral Valve The mitral valve is normal in structure. No evidence of mitral valve stenosis. Trace mitral regurgitation. Tricuspid Valve Tricuspid valve is grossly normal in structure and function. Mild tricuspid regurgitation. RVSP 25-30 mmHg. Pulmonic Valve The pulmonary valve is normal in structure. Trace pulmonic regurgitation. Great Vessels The aortic root is normal in size. IVC is normal in size and collapses >50% with inspiration. Pericardium There is no pericardial effusion. Other Information Study Quality: Fair Conclusion Mildly reduced LV systolic function (LVEF 45%). moderate hypokinesis of the septal and inferoseptal LV daugherty. The septum is asynchronous. Mild AI, mild TR. Electronically signed by : Sally Mondragon MD 04/26/2025 10:32:47
[2025-04-26] MEDS: DEFINITY US ECHO CONTRAST 2ML INJ 2 MG IV (10:18)
== END 2025-04-26 23:59 | disposition home or self-care (01) ==
LOC: RT 07:46
PROVIDERS: PCP Nurse Practitioner Family; Visit Provider Physician Assistant
DX: I08.2 Rheumatic disorders of both aortic and tricuspid valves (principal); I25.10 Atherosclerotic heart disease of native coronary artery without angina pectoris; I10 Essential (primary) hypertension; I25.2 Old myocardial infarction; R93.1 Abnormal findings on diagnostic imaging of heart and coronary circulation; Z95.810 Presence of automatic (implantable) cardiac defibrillator
CPT/HCPCS: 93306; Q9957

== ENCOUNTER 2025-06-13 10:14 | Outpatient (CLI) | payer MEDICARE, OTHER, SELFPAY ==
--- OUTSIDE RECORDS SUMMARY | 2025-06-13 08:54 | XMS_ITS | Continuity of Care Document ---
Author Name [facility] Organization [facility] Care Team Providers Care Instructional Services Specialist Name Role Phone [facility] Unavailable Unavailable Medications Combined list of outpatient [...] BAUSCH &LOMB RX, 3.5 g TUBE Active [id number] 2023 3.5 Pharmac y Data Transac tion Service Facilit y METHOCARBAM OL (METHOCARBA MOL), 500 MG, TABLET, ORAL, [facility] [employer]ACE, 100 ea. BOTTLE Active [id number] 4 2023 12 Pharmac y Data Transac tion Service Facilit y METOPROLOL SUCCINATE (METOPROLOL SUCCINATE), 50 MG, TAB ER 24H, ORAL, 'S LAB, 500 ea. BOTTLE Cancele d [id number] : 2023 0 Pharmac y Data Transac tion Service Facilit y Social History Combined list of available smoking, tobacco, and other social history from Department of Defense and Veterans Affairs facilities. Social History Type Response Date Comment Sourc e This section is an empty social history section. DoD
--- OUTSIDE RECORDS SUMMARY | 2025-06-13 10:19 | XMS_ITS | Clinical Summary ---
Author Organization Healthcare Address [address] [place] [address] Care Team Providers Care Fitness Assistant Name Role Phone BarnardElizabeth salvador NIKOS Primary Care Provider +1- [phone] Allergies Active Allergy Reactions Criticality Noted Date Comments Esomeprazole Diarrhea Low 10/17/2023 Medications sodium chloride ([place]) 0.65 % nasal spray Administer 2 sprays [...] Screening 1955 [facility] Annual Wellness (AWV) 1953 [facility]-/Child/Adol SDOH Screenings 1953 [facility]- SDOH Screenings 1971 [facility]-Adult SDOH Screenings 1971 [facility]-DTaP,Tdap,and Td Vaccine s (1 - Tdap) 01/05/1997 01/04/1997 CT Colonography 1998 Colonoscopy 1998 FIT-DNA 1998 FIT 1998 FOBT 1998 Sigmoidoscopy 1998 [facility]-Colorectal Cancer Screening 1998 [facility]-Pneumococcal Vaccine: 50 + Years (1 of 1 - PCV) 2003 [facility]-Zoster Vaccines (1 of 2) 2003 [id number] Vaccine ( season) 2024 01/31/2021, 01/03/2021 [facility]-Influenza Vaccine (#1) 2025 [facility]-RSV Vaccine: 60+ Years o r [...] Antibody Negative Negative 10/17/2023 10:14 AM EST [facility] Blood Venous blood specimen / Unknown Venipuncture / Unknown 10/17/2023 9:17 AM EST 10/17/2023 9:22 AM EST River Cartagena MD LAB BLOOD ORDERABLES Final Result [facility] [address] [place] [address] from Last 3 Months or Most Recently Relevant to Health Maintenance Insurance MEDICARE [facility] Care Teams Fitness Assistant Relationship Specialty Start Date End Date Elizabeth Barnard APRN [address] [place] [address] PCP - General 10/17/23
[2025-06-13 10:50] LABS: Hematocrit 40.9 % (42.0-52.0); Hemoglobin 13.5 g/dL (14.1-18.0); Immature Granulocytes % 0.9 %; Mean Corpuscular HGB Conc 33.0 g/dL (31.8-35.4); Mean Corpuscular Hemoglobin 29.7 pg (27.0-31.2); Mean Corpuscular Volume 89.9 fl (80-94); Nucleated Red Blood Cells % 0 %; Platelet Count 294 K/mm3 (142-424); Red Blood Count 4.55 M/mm3 (4.60-6.20); Red Cell Distribution Width-SD 45.1 fL; White Blood Count 6.9 K/mm3 (4.8-10.8)
[2025-06-13 11:13] LABS: Albumin Level 4.6 g/dl (3.5-5.0); Chloride 103 mmol/L (98-107); Potassium 4.9 mmoL/L (3.5-5.1); Sodium 138 mmol/L (136-145)
[2025-06-13 11:15] LABS: Blood Urea Nitrogen 26 mg/dl (9-20); Creatinine,Serum 1.10 mg/dl (0.66-1.25); Estimated Glomerular Filt Rate 66 ml/min (>60); GFR (African American) 80 ML/MIN (>60)
[2025-06-13 11:16] LABS: Alanine Aminotransferase 27 U/L (12-78); Albumin/Globulin Ratio 1.6 (1.1-1.8); Alkaline Phosphatase 115 U/L (38-126); Anion Gap 15.9 mEq/L (5-15); Aspartate Amino Transferase 29 U/L (17-59); Bilirubin,Total 0.8 mg/dl (0.2-1.3); Calcium 9.2 mg/dl (8.4-10.2); Carbon Dioxide 24 mmol/L (22.0-30.0); Cholesterol 152 mg/dl (140-200); Globulin 2.8 g/dL (1.3-3.2); Glucose 128 mg/dl (74-100); HDL Cholesterol 40 mg/dl (40-60); Magnesium 2.2 mg/dl (1.6-2.3); Total Protein,Serum 7.4 g/dl (6.3-8.2); Triglycerides 179 mg/dl (30-150)
[2025-06-13 11:51] LABS: Thyroid Stimulating Hormone 3.05 uIU/mL (0.465-4.68)
[2025-06-13 11:54] LABS: Hemoglobin A1C 6.1 % (4.0-6.0)
[2025-06-13 13:02] LABS: Vitamin B12 > 1000 pg/mL (239-931)
== END 2025-06-13 23:59 | disposition home or self-care (01) ==
LOC: LAB 10:15
PROVIDERS: PCP Nurse Practitioner Family; Visit Provider Nurse Practitioner Family
DX: E78.2 Mixed hyperlipidemia (principal); R73.03 Prediabetes; I10 Essential (primary) hypertension; E53.8 Deficiency of other specified B group vitamins
CPT/HCPCS: 36415; 80053; 80061; 82607; 83036; 83735; 84443; 85025

== ENCOUNTER 2025-09-13 12:23 | Outpatient (CLI) | payer MEDICARE, OTHER, SELFPAY ==
--- OUTSIDE RECORDS SUMMARY | 2025-09-13 12:25 | XMS_ITS | Clinical Summary ---
Author Organization Healthcare Address [address] [place] [address] Care Team Providers Care Mobile Phlebotomist Name Role Phone BarnardElizabeth salvador NIKOS Primary Care Provider +1- [phone] Allergies Active Allergy Reactions Criticality Noted Date Comments Esomeprazole Diarrhea Low 10/17/2023 Medications sodium chloride ([place]) 0.65 % nasal spray Administer 2 sprays [...] 2003 [facility]-Zoster Vaccines (1 of 2) 2003 [id number] Vaccine (3 - season) 2025 01/31/2021, 01/03/2021 [facility]-Influenza Vaccine (#1) 2025 [facility]-RSV [...] Antibody Negative Negative 10/17/2023 10:14 AM EST [facility] Blood Venous blood specimen / Unknown Venipuncture / Unknown 10/17/2023 9:17 AM EST 10/17/2023 9:22 AM EST River Cartagena MD LAB BLOOD ORDERABLES Final Result [facility] [address] [place] [address] from Last 3 Months or Most Recently Relevant to Health Maintenance [place] [address] [facility] Care Teams Mobile Phlebotomist Relationship Specialty Start Date End Date Elizabeth Barnard APRN [address] [place] [address] PCP - General 10/17/23
[2025-09-13 13:27] LABS: Hematocrit 38.9 % (42.0-52.0); Hemoglobin 12.8 g/dL (14.1-18.0); Immature Granulocytes % 0.9 %; Mean Corpuscular HGB Conc 32.9 g/dL (31.8-35.4); Mean Corpuscular Hemoglobin 29.8 pg (27.0-31.2); Mean Corpuscular Volume 90.5 fl (80-94); Nucleated Red Blood Cells % 0 %; Platelet Count 306 K/mm3 (142-424); Red Blood Count 4.30 M/mm3 (4.60-6.20); Red Cell Distribution Width-SD 44.6 fL; White Blood Count 5.8 K/mm3 (4.8-10.8)
[2025-09-13 13:52] LABS: Alanine Aminotransferase 27 U/L (12-78); Albumin Level 4.2 g/dl (3.5-5.0); Albumin/Globulin Ratio 1.3 (1.1-1.8); Alkaline Phosphatase 116 U/L (38-126); Anion Gap 12.9 mEq/L (5-15); Aspartate Amino Transferase 25 U/L (17-59); Bilirubin,Total 0.7 mg/dl (0.2-1.3); Blood Urea Nitrogen 25 mg/dl (9-20); Calcium 9.1 mg/dl (8.4-10.2); Carbon Dioxide 22 mmol/L (22.0-30.0); Chloride 104 mmol/L (98-107); Cholesterol 129 mg/dl (140-200); Creatinine,Serum 1.20 mg/dl (0.66-1.25); Estimated Glomerular Filt Rate 60 ml/min (>60); GFR (African American) 72 ML/MIN (>60); Globulin 3.2 g/dL (1.3-3.2); Glucose 125 mg/dl (74-100); HDL Cholesterol 37 mg/dl (40-60); Magnesium 1.9 mg/dl (1.6-2.3); Potassium 4.9 mmoL/L (3.5-5.1); Sodium 134 mmol/L (136-145); Total Protein,Serum 7.4 g/dl (6.3-8.2); Triglycerides 178 mg/dl (30-150)
[2025-09-13 14:27] LABS: Ferritin 16.9 ng/ml (17.9-464)
[2025-09-13 14:45] LABS: Vitamin B12 > 1000 pg/mL (239-931)
[2025-09-13 14:47] LABS: Hemoglobin A1C 6.2 % (4.0-6.0)
== END 2025-09-13 23:59 | disposition home or self-care (01) ==
LOC: LAB 12:24
PROVIDERS: PCP Nurse Practitioner Family; Visit Provider Nurse Practitioner Family
DX: D50.8 Other iron deficiency anemias (principal); E78.5 Hyperlipidemia, unspecified; E11.9 Type 2 diabetes mellitus without complications; I10 Essential (primary) hypertension; E53.8 Deficiency of other specified B group vitamins
CPT/HCPCS: 36415; 80053; 80061; 82607; 82728; 83036; 83735; 85025

== ENCOUNTER 2025-10-17 08:58 | Emergency (ER) | payer MEDICARE, OTHER, SELFPAY ==
[2025-10-17 09:00] VITALS: BP 136/99; PULSE 106; RESP 16; TEMP 37.2; O2SAT 96; BMI 41.8
[2025-10-17 09:03] VITALS: BP 136/99; O2SAT 95
--- NOTE | 2025-10-17 09:10 | CT_ITS ---
PROCEDURE INFORMATION: Exam: CT Abdomen And Pelvis With Contrast Exam date and time: 10/17/2025 9:59 AM Age: 70 years old Clinical indication: Other: Painless hematuria; Additional info: Painless hematuria, bladder cancer vs prostate TECHNIQUE: Imaging protocol: Computed tomography of the abdomen and pelvis with contrast. Radiation optimization: All CT scans at this facility use at least one of these dose optimization techniques: automated exposure control; mA and/or kV adjustment per patient size (includes targeted exams where dose is matched to clinical indication); or iterative reconstruction. Contrast material: ISOVUE; Contrast volume: 75 ml; Contrast route: IV; COMPARISON: CT ANGIO ABDOMEN PELVIS 03/22/2024 2:26 PM FINDINGS: Lungs: Lung bases are clear as visualized. Liver: Unremarkable liver. Gallbladder and biliary ducts: Cholelithiasis. Pancreas: Normal. No ductal dilation. Spleen: Normal. No splenomegaly. Adrenal glands: Normal. No mass. Kidneys and ureters: A few additional small benign-appearing cysts are also seen in the left kidney. No renal mass, calculi, or obstruction bilaterally. Stomach and bowel: No bowel obstruction. Mild bowel wall thickening in the cecum and ascending colon. Nonspecific. A component might be due to underdistention. [id number] sigmoid colonic diverticulosis. Appendix: No evidence of appendicitis. Intraperitoneal space: Unremarkable. No free air. No significant fluid collection. Vasculature: Unremarkable. No abdominal aortic aneurysm. Lymph nodes: Unremarkable. No enlarged lymph nodes. Urinary bladder: Interval increased in size of previously described mural based somewhat papillary lesion in the right posterolateral bladder wall (6 to 8 o'clock position). For example, an index lesion on image 110 series 3 measures 3.8 x 2.6 cm axial, previously 1.0 x 1.3 cm axial. Reproductive: Redemonstrated significant prostatomegaly, with prostate measuring 6.1 x 5.9 cm axial. Prostate gland projects into the posterior bladder. Bones/joints: Unremarkable. No acute fracture. Soft tissues: Unremarkable. Other findings: Interval decrease in size of cyst at the left superior pole, measuring 4.2 x 3.4 cm axial, previously 8.3 x 7.4 cm axial. Appears benign. No further follow-up needed. IMPRESSION: 1. Interval increase in size of previously described mural based somewhat papillary lesion in the right posterolateral bladder wall (6 to 8 o'clock position). For example, an index lesion measures 3.8 x 2.6 cm axial, previously 1.0 x 1.3 cm axial. 2. Prostatomegaly. COMMENTS: Consistent with the [place] [employer]'s Incidental Findings Committee white paper (J Am Marcelo Radiol 2018): Any incidental renal lesion less than 1 cm or classified as too small to characterize, or any incidental cystic renal lesion characterized as simple-appearing, is likely benign. No follow-up imaging is recommended for these lesions per consensus recommendations based on imaging criteria.
--- NOTE | 2025-10-17 09:12 | HMH.EDGENADL ---
Discharge Plan Disposition Patient Disposition: Xfer Other Prescriptions Prescriptions: No Action cyanocobalamin (vitamin B-12) 500 mcg tablet 500 mcg PO BID cyanocobalamin (vitamin B-12) 1,000 mcg/mL solution 1,000 mcg IM QMONTH acetaminophen [Tylenol Extra Strength] 500 mg tablet 500 - 1,000 mg PO Q6H PRN atorvastatin 80 mg tablet 80 mg PO HS Qty: 90 3RF lisinopril 10 mg tablet See Rx Instructions .ROUTE .COMPLEX Qty: 90 3RF Dose Instruction: TAKE 1 TABLET BY MOUTH DAILY FOR HIGH BLOOD PRESSURE Rx Instructions: TAKE 1 TABLET BY MOUTH DAILY FOR HIGH BLOOD PRESSURE spironolactone 25 mg tablet 25 mg PO DAILY Qty: 90 3RF metoprolol succinate 50 mg tablet extended release 24 hr 50 mg PO BID Qty: 180 3RF pantoprazole 40 mg tablet,delayed release (DR/EC) 40 mg PO DAILY 90 Days Qty: 90 3RF Jardiance 10 mg tablet 10 mg PO DAILY Qty: 90 3RF clopidogrel 75 mg tablet 75 mg PO DAILY Qty: 90 3RF furosemide 40 mg tablet See Rx Instructions .ROUTE .COMPLEX Qty: 90 3RF Dose Instruction: TAKE 1 TABLET BY MOUTH DAILY FOR FLUID RETENTION Rx Instructions: TAKE 1 TABLET BY MOUTH DAILY FOR FLUID RETENTION Pro Fe 180 mg iron capsule 180 mg PO DAILY Qty: 30 2RF ranolazine 500 mg tablet extended release 12 hr 500 mg PO BID Qty: 180 3RF Xarelto 20 mg tablet 20 mg PO HS Qty: 90 3RF famotidine 20 MG tablet 20 mg PO BID Referrals Follow up/Referrals: Elizabeth Barnard APRN [Primary Care Provider, Medical] - See instructions Clinical Impressions Clinical Impression: Bladder mass, Acute hemorrhagic cystitis Instructions Patient Instructions: DI for Urinary Tract Infection (UTI), DI for Urinary Tract Infection in Children Print Language Print Language: Greenlandic Discharge ED Provider: Royce Zelaya Adult HPI General Chief complaint: Urogenital-Male Stated complaint: nose bleeds Time Seen by Provider: 10/17/25 09:03 History of Present Illness HPI narrative: Darian Mondragon is a 70y male with a history of coronary artery disease status post stenting on Plavix, heart failure, pacemaker, A-fib, hyperlipidemia who presents to the emergency department for complaints of hematuria and epistaxis. Patient states that roughly 12 to 15 hours ago, he had a nosebleed that has since subsided. He states that since then, he has been urinating bright red blood. He denies any abdominal pain or pain with urination. He reports chronic back pain that is not worse than normal. He denies any personal history of prostate issues or cancers. He states that last time he had a nosebleed he was seen here in the emergency department approximately a year and they nasally packed each nostril but ended up sending him to the [facility] for further management. Related Data Home Medications ?Medication ?Instructions ?Recorded ?Confirmed famotidine 20 mg tablet 20 mg PO BID Acid Reflux 11/19/19 09/13/25 cyanocobalamin (vitamin B-12) 1,000 mcg IM QMONTH 03/14/25 09/13/25 1,000 mcg/mL injection solution cyanocobalamin (vitamin B-12) 500 500 mcg PO BID 03/14/25 09/13/25 mcg tablet acetaminophen 500 mg tablet 500 - 1,000 mg PO Q6H PRN 06/13/25 09/13/25 (Tylenol Extra Strength) Previous Rx's ?Medication ?Instructions ?Recorded atorvastatin 80 mg tablet 80 mg PO HS Cholesterol #90 tabs 12/06/24 lisinopril 10 mg tablet See Rx Instructions .Route 12/10/24 .COMPLEX #90 tabs metoprolol succinate 50 mg 50 mg PO BID High blood pressure 01/21/25 tablet,extended release 24 hr #180 tabs spironolactone 25 mg tablet 25 mg PO DAILY Fluid #90 tabs 01/21/25 pantoprazole 40 mg tablet,delayed 40 mg PO DAILY 90 days #90 tabs 04/19/25 release empagliflozin 10 mg tablet 10 mg PO DAILY #90 tabs 05/18/25 (Jardiance) clopidogrel 75 mg tablet 75 mg PO DAILY #90 tabs 07/14/25 furosemide 40 mg tablet See Rx Instructions .Route 09/14/25 .COMPLEX #90 tabs polysaccharide iron complex 180 mg 180 mg PO DAILY #30 caps 09/16/25 iron capsule (Pro Fe) ranolazine 500 mg tablet,extended 500 mg PO BID #180 tabs 09/22/25 release,12 hr rivaroxaban 20 mg tablet (Xarelto) 20 mg PO HS for blood clot #90 tabs 10/03/25 Allergies Allergy/AdvReac Type Severity Reaction Status Date / Time esomeprazole (From NEXIUM) Allergy Mild Unknown Verified 08/30/25 14:52 allergy reaction [facility] Disclaimer: The information contained in this section may have been updated after the patient was seen, as this information can be updated by other users. Medical History Abdominal pain Nausea Dyspepsia Angina pectoris Myocardial infarction Atrial fibrillation History of cardiac arrest Cardiomyopathy HLD (hyperlipidemia) HTN (hypertension) Coronary artery disease Surgical History History of back surgery Family History Other Coronary artery disease Family history of cancer Family history of diabetes mellitus type II Social History Smoking Status: Current every day smoker alcohol intake: never substance use type: denies use current occupational status: disabled Travel in the last 8 weeks?: None caffeine: Yes Have you lived/traveled outside [place] in past 30 days?: No Contact w/someone who lives/traveled outside [place] past 30 days?: No Exposure to someone with infectious disease in past 14 days?: No Do you have a fever (greater than 100.4 F or 38 C)?: No Have you tested positive for COVID-19?: No Exposed to someone with COVID-19 in past 14 days?: No Do you have a sore throat?: No Do you have a cough?: No Do you have any weakness?: No Do you have any diarrhea?: No Are you experiencing any unusual bleeding?: No Do you have any muscle aches/pain?: No Do you have any abdominal pain?: No Are you experiencing loss of taste or smell?: No Other Medical History Have you received the Flu Vaccine for this season: No Have you received the Pneumonia Vaccine: Yes ROS Obtained: Yes Systems reviewed as appropriate & no additional complaints except as documented Physical Exam General General appearance: alert and in no apparent distress Head Head exam: atraumatic Eye Eye exam: Present normal appearance ENT ENT exam: Present normal external ear exam Neck Neck exam: Present full ROM Chest Chest inspection: Present symmetric chest wall rise Respiratory Respiratory exam: Present normal lung sounds bilaterally; Absent respiratory distress, wheezes or stridor Cardiovascular Cardiovascular exam: Present regular rate and normal rhythm Abdominal Exam Abdominal exam: Present soft; Absent distention, tenderness, guarding or rigidity exam: Present deferred Extremities Exam Extremities exam: Present normal inspection Back Exam Back exam: Present normal inspection Neurological Exam Neurological exam: Present alert and oriented X3 Psychiatric Psychiatric exam: Present normal affect Skin Skin exam: Present warm and dry Medical Decision Making Medical Records Screening: Per USPSTF and CDC recommendations, given the prevalence of disease in our region, it is our hospital?s policy to screen for HIV and viral Hepatitis for all patients aged 18 and over and those with ongoing risk factors. Anthony Inquiry Pt receiving controlled substance: No Vital Signs: 10/17/25 09:00 10/17/25 09:03 10/17/25 10:27 Temperature 99 F Temperature Source Oral Pulse Rate 77 Pulse Rate [Right] 106 H Respiratory Rate 16 16 Blood Pressure 136/99 H 108/66 L Blood Pressure [Right Arm] 136/99 H Blood Pressure Mean 84 Blood Pressure Mean [Right Arm] 111 Blood Pressure Source [Right Arm] Automatic Cuff Blood Pressure Position [Right Arm] Supine 02 Sat by Pulse Oximetry 96 95 95 Oxygen Delivery Method Room Air 10/17/25 10:30 Temperature Temperature Source Pulse Rate 74 Pulse Rate [Right] Respiratory Rate 15 Blood Pressure 130/65 Blood Pressure [Right Arm] Blood Pressure Mean 78 Blood Pressure Mean [Right Arm] Blood Pressure Source [Right Arm] Blood Pressure Position [Right Arm] 02 Sat by Pulse Oximetry 96 Oxygen Delivery Method Lab Data Lab Results 10/17/25 09:10: WBC 8.4, RBC 4.57 L, Hgb 13.4 L, Hct 41.2 L, MCV 90.2, MCH 29.3, MCHC 32.5, RDW 13.7, Plt Count 341, MPV 9.2, Neut % (Auto) 63.4, Lymph % (Auto) 23.6, Maverick % (Auto) 9.1, Eos % (Auto) 2.9, Baso % (Auto) 0.5, Neut # (Auto) 5.3, Lymph # (Auto) 2.0, Maverick # (Auto) 0.8, Eos # (Auto) 0.2, Baso # (Auto) 0.0, PT 11.5, INR 1.04, APTT 25.9, Sodium 134 L, Potassium 4.1, Chloride 101, Carbon Dioxide 26, Anion Gap 11.1, BUN 29 H, Creatinine 1.60 H, Estimated GFR 43 L, Est GFR ( Amer) 52 L, Glucose 153 H, Calcium 8.9, Total Bilirubin 0.8, AST 33, ALT 28, Alkaline Phosphatase 105, Total Protein 8.2, Albumin 4.9, Globulin 3.3 H, Albumin/Globulin Ratio 1.5, HCV Ab MARCIAL w/Rflx PCR Qn Negative, HIV Ag/Ab Combo Qual Negative 10/17/25 09:11: Urine Color Red, Urine Appearance Turbid, Urine pH 6.5, Ur Specific [place] 1.020, Urine Protein 3+ A, Urine Glucose (UA) 3+, Urine Ketones 1+, Urine Blood 3+ A, Urine Nitrate Positive A, Urine Bilirubin 2+ A, Urine Urobilinogen 4.0, Ur Leukocyte Esterase 2+ A, Urine RBC Tntc, Urine WBC 20-50, Urine Bacteria 2+ 10/17/25 09:29: POC Glucose 184 H 10/17/25 09:10 10/17/25 09:10 Orders (Tests/Meds): ED MEDICATIONS Discontinued Medications Generic Name Dose Route Start Last Admin Trade Name Freq PRN Reason Stop Dose Admin Ceftriaxone Sodium 2 gm/ 100 mls @ 200 mls/hr 10/17/25 10:01 Sodium Chloride IV 10/17/25 10:30 ONCE ONE Iopamidol 75 ml 10/17/25 09:57 10/17/25 10:02 Iopamidol-370 (76%);100ml Bottle IV 10/17/25 09:58 75 ml ONCE ONE Administration Sodium Chloride 10 ml 10/17/25 09:57 10/17/25 10:02 Sodium Chloride 0.9% 10ml Syr (Rad Only) IV 10/17/25 09:58 10 ml ONCE ONE Administration ORDERS Category Date Time Status CT abdomen pelvis w con Stat Cat Scan 10/17/25 09:10 Completed CBC w/Auto Diff [Complete Blood Count Auto Diff] Stat Lab 10/17/25 09:10 Completed CMP [Comprehensive Metabolic Panel] Stat Lab 10/17/25 09:10 Completed HIV Combo Stat Lab 10/17/25 09:10 Completed Hepatitis C Ab Qual. W/ RFX Stat Lab 10/17/25 09:10 Completed POC Glucose,Bedside Routine Lab 10/17/25 09:29 Completed PT INR [Prothrombin Time INR] Stat Lab 10/17/25 09:10 Completed PTT [Activated Partial Thrombo Time] Stat Lab 10/17/25 09:10 Completed UA [Urinalysis and Microscopic] Stat Lab 10/17/25 09:11 Completed Blood Culture Stat Micro 10/17/25 11:12 Received Urine Culture Stat Micro 10/17/25 09:11 Received Medical Decision Narrative: Darian Mondragon is a 70y male with a history of coronary artery disease status post stenting on Plavix, heart failure, pacemaker, A-fib, hyperlipidemia who presents to the emergency department for complaints of hematuria and epistaxis. Patient states that roughly 12 to 15 hours ago, he had a nosebleed that has since subsided. He states that since then, he has been urinating bright red blood. He denies any abdominal pain or pain with urination. He reports chronic back pain that is not worse than normal. He denies any personal history of prostate issues or cancers. He states that last time he had a nosebleed he was seen here in the emergency department approximately a year and they nasally packed each nostril but ended up sending him to the [facility] for further management. On arrival, patient's blood pressure within normal limits, mildly tachycardic, temperature within normal limits. Maintaining appropriate oxygen saturation on room air. Physical exam, as stated above, revealed an overall nontoxic male in no significant distress. Abdomen is soft, nontender nondistended. He has no epistaxis at this time. Differential diagnosis includes, but is not limited to: Hemorrhagic cystitis, bladder cancer, prostatitis, Plavix side effect, coagulopathy, anemia, among others. The most morbid conditions were considered and workup was based on these. Workup included: Hematologic labs, coagulation studies, urine studies, CT abdomen pelvis with contrast. Workup revealed no leukocytosis, hemoglobin stable at 13.4, hematocrit 41.2. Platelets within normal limits. Coagulation studies within normal limits. Mild hyponatremia at 134 with BUN elevated at 29. Patient has had elevated creatinine in the past and baseline is around 1.1-1.2, however this is elevated above his baseline consistent with MARV. Liver enzymes and bilirubin within normal limits. Urine is dark red in color. 2+ urine protein, 3+ urine blood, positive nitrate, 2+ leukocyte esterase and 2+ urine bilirubin. Urine microscopy shows too numerous to count red blood cells and 20-50 white blood cells. 2+ urine bacteria. This is likely territory representative of hemorrhagic cystitis. Will administer 2 g of IV Rocephin after obtaining blood cultures. Urine culture was sent as well. CT imaging was interpreted by me personally. There is a masslike structure on the right posterior lateral bladder wall measuring 3.8 x 2.6 cm. There is some prostatomegaly as well. Per radiology, this mass has increased in size from previous studies and previously measured 1 x 1.3 cm. This is concerning for bladder mass/cancer given patient's painless hematuria, although there is a likely component of hemorrhagic cystitis given his urine studies today. Patient states that he has never been told that he had a mass in his bladder and has never been evaluated by urology. Patient does not meet SIRS/sepsis criteria. Will discuss patient's case with [facility] for transfer. I did discuss these findings with the patient and he is in agreement with discussing it with [facility] at this time. Patient does not meet sepsis criteria. On reassessment, patient is normotensive and heart rate had improved. I did discuss patient's case with GENESIS Dobson at the [facility] transfer center who agreed to accept the patient under Dr. Gerer for transfer to the emergency department for higher level of care. I discussed this with the patient and he is in agreement to go to the [facility] at this time. Patient is stable, has no pain, and is appropriate to go POV. Critical Care Critical Care Time Critical Care Time: No
[2025-10-17 09:18] LABS: Microscopic, Urine URINE MICROSCOPIC (MICROSCOPIC)
[2025-10-17 09:19] LABS: Hematocrit 41.2 % (42.0-52.0); Hemoglobin 13.4 g/dL (14.1-18.0); Immature Granulocytes % 0.5 %; Mean Corpuscular HGB Conc 32.5 g/dL (31.8-35.4); Mean Corpuscular Hemoglobin 29.3 pg (27.0-31.2); Mean Corpuscular Volume 90.2 fl (80-94); Nucleated Red Blood Cells % 0 %; Platelet Count 341 K/mm3 (142-424); Red Blood Count 4.57 M/mm3 (4.60-6.20); Red Cell Distribution Width-SD 44.9 fL; White Blood Count 8.4 K/mm3 (4.8-10.8)
--- NOTE | 2025-10-17 09:23 | PC.NURSE ---
0907 this RN attempts IV to [facility]. Labs were able to be drawn, however was unable to be advanced and swelling noted to site. IV Removed.
[2025-10-17 09:24] LABS: Color,Urine RED (Yellow); Glucose,Urine (UA) 3+ (Negative); Ketones,Urine 1+ (Negative); Leukocyte Esterase,Urine 2+ (Negative); PH,Urine 6.5 (5.0-8.5); Protein,Urine 3+ (Negative); Specific Gravity, Urine 1.020 (1.005-1.030); Urobilinogen,Urine 4.0 EU/dl (0.2)
[2025-10-17 09:32] LABS: Albumin Level 4.9 g/dl (3.5-5.0); Chloride 101 mmol/L (98-107); Potassium 4.1 mmoL/L (3.5-5.1); Sodium 134 mmol/L (136-145)
[2025-10-17 09:33] LABS: Activated Partial Thrombo Time 25.9 seconds (22.8-30.6); INR 1.04 (0.9-1.1); Prothrombin Time 11.5 seconds (10.1-12.5)
[2025-10-17 09:35] LABS: Alanine Aminotransferase 28 U/L (12-78); Albumin/Globulin Ratio 1.5 (1.1-1.8); Alkaline Phosphatase 105 U/L (38-126); Anion Gap 11.1 mEq/L (5-15); Aspartate Amino Transferase 33 U/L (17-59); Bilirubin,Total 0.8 mg/dl (0.2-1.3); Blood Urea Nitrogen 29 mg/dl (9-20); Carbon Dioxide 26 mmol/L (22.0-30.0); Creatinine,Serum 1.60 mg/dl (0.66-1.25); Estimated Glomerular Filt Rate 43 ml/min (>60); GFR (African American) 52 ML/MIN (>60); Globulin 3.3 g/dL (1.3-3.2); Total Protein,Serum 8.2 g/dl (6.3-8.2)
[2025-10-17 09:36] LABS: Calcium 8.9 mg/dl (8.4-10.2); Glucose 153 mg/dl (74-100)
[2025-10-17 09:36] LABS: POC Glucose,Bedside 184 gm/dL (70-110)
[2025-10-17 09:53] LABS: Bilirubin,Urine 2+ (Negative)
--- NOTE | 2025-10-17 09:55 | PC.NURSE ---
pt to ct
[2025-10-17 09:58] LABS: WBC,Urine 20-50 #/hpf (0-3)
[2025-10-17 09:59] LABS: Bacteria,Urine 2+ /lpf; RBC,Urine TNTC #/hpf (0-3)
[2025-10-17] MEDS: IOPAMIDOL-370 (76%);100ML BOTTLE 75 ML IV (10:02)
[2025-10-17] MEDS: SODIUM CHLORIDE 0.9% 10ML SYR (RAD ONLY) 10 ML IV (10:02)
[2025-10-17 10:27] VITALS: BP 108/66; PULSE 77; RESP 16; O2SAT 95
[2025-10-17 10:30] VITALS: BP 130/65; PULSE 74; RESP 15; O2SAT 96
[2025-10-17 10:56] LABS: Hepatitis C Ab Qual. W/ RFX NEGATIVE (Negative)
--- NOTE | 2025-10-17 10:58 | PC.NURSE ---
tried to obtain blood cultures, unsuccessful at this time.
--- NOTE | 2025-10-17 11:03 | PC.NURSE ---
Blood cultures delayed at this time do to pt being a hard stick.
--- NOTE | 2025-10-17 11:09 | PC.NURSE ---
Lab at pt's bedside at this time.
--- NOTE | 2025-10-17 11:17 | PC.NURSE ---
calling [facility] at this time
[2025-10-17 11:40] VITALS: BP 130/53; PULSE 65; RESP 16; O2SAT 96
--- NOTE | 2025-10-17 11:48 | PC.NURSE ---
Called report to NAS Thomas at [facility].
[2025-10-17 12:17] VITALS: BP 119/58; PULSE 65; RESP 18; TEMP 37.1; O2SAT 95
== END 2025-10-17 12:18 | disposition other institution (70) ==
PROVIDERS: Emergency Provider Student in an Organized Health Care Education/Training Program; PCP Nurse Practitioner Family
DX: N30.01 Acute cystitis with hematuria (principal); N32.89 Other specified disorders of bladder; R04.0 Epistaxis; F17.210 Nicotine dependence, cigarettes, uncomplicated; I10 Essential (primary) hypertension; E78.5 Hyperlipidemia, unspecified; Z86.79 Personal history of other diseases of the circulatory system; Z95.810 Presence of automatic (implantable) cardiac defibrillator; Z79.01 Long term (current) use of anticoagulants
CPT/HCPCS: 74177; 80053; 81001; 82962; 85025; 85610; 85730; 86803; 87040; 87086; 87389; 96374; 99285; J0696; Q9967